=== PATIENT | female | born 1940 | race Caucasian/White ===

== ENCOUNTER 2022-07-30 18:48 | Observation (INO) ==
[2022-07-30] MEDS ORDERED: ONDANSETRON 4 MG OD TAB ONE (20:18)
--- NOTE | 2022-07-30 20:19 | XRay Report ---
XR chest 1V portable CLINICAL HISTORY: stroke alert TECHNIQUE: Single frontal radiograph of the chest was obtained. Comparison: Comparison is made to chest radiograph 03/28/2008 FINDINGS: Dual lead pacemaker is seen. Cardiomegaly is noted. Calcified aortic knob is noted. Linear density is in the left lower lung. No evidence of pleural effusion or pneumothorax. IMPRESSION: Focal atelectasis in the left lung base. No acute abnormalities. ACT 112: Negative or not required by law. Electronically signed by: David Muñoz M.D. 07/30/2022 8:18 PM
--- NOTE | 2022-07-30 20:34 | CT Scan Report ---
CT head/brain wo con CLINICAL HISTORY: Stroke Alert Technique: Contiguous axial CT images of the head were acquired from the base of the skull to the tristen joshua without intravenous contrast administration. Images were viewed in brain, subdural and bone [facility]. Automated dose lowering techniques and/or adjustment according to patient size were utilized for this exam. Comparison: None available at the time of this dictation. Findings: There are postsurgical changes in the left frontal lobe with associated encephalomalacia. Pneumocepha savanna is seen. Hyperdense material in the right frontal subdural region measures 27 mm. There is promi nence of the left subarachnoid space and an approximate 5 mm dural density about the incision site. T here is trace subarachnoid hemorrhage in the right frontal lobe. No intraventricular hemorrhage is se en. Imaged portions of the paranasal sinuses and mastoid air cells are clear. The orbits appear normal. There are no acute fractures of the calvaria or scalp swelling. Impression: 1. Postsurgical changes of left frontal resection. There is pneumocephalus, 5 mm dural density about the incision site is noted, and there is trace subarachnoid hemorrhage. This may represent expected postoperative findings, however this may also be concerning for a small hemorrhage and/or infectious process. Correlation with recent postprocedural imaging is recommended. 2. 6 mm right subdural density may represent a subacute subdural hematoma, possibly postprocedural. ACT 112: Negative or not required by law. Electronically signed by: David Muñoz M.D. 07/30/2022 8:32 PM
[2022-07-30 20:42] LABS: Hematocrit (blood only) 35.7 % (34.1-44.9); Mean Corpuscular Hemoglobin 30.4 pg (25.0-34.0); Mean Corpuscular Hgb Conc 33.6 g/dL (32.0-36.0); Mean Corpuscular Volume 90.4 fL (80.0-100.0); Mean Platelet Volume 11.6 fL (9.4-12.3); Platelet Count 303 K/uL (130-400); RDW Coefficient of Variation 13.7 % (11.5-14.5); RDW Standard Deviation 44.6 fL (36.4-46.3); Red Blood Count 3.95 M/uL (3.93-5.22); White Blood Count 10.22 K/ul (4.8-10.8)
[2022-07-30 20:48] LABS: Appearance Urine Cloudy (Clear); Bacteria Urine Automated 4+ (Negative); Bilirubin Urine Negative (Negative); Blood Urine Negative (Negative); Color Urine Yellow; Epithelial Cell Urine Auto >30 /lpf (0-5); Glucose Urine UA Negative (Negative); Ketones Urine Negative (Negative); Leukocyte Esterase Urine 3+ (Negative); Nitrite Urine Negative (Negative); RBC Urine Automated 0-4 /hpf (0-4); Specific Gravity Urine 1.012 (1.000-1.030); Urobilinogen Urine Negative (Negative); WBC Urine Automated >30 /hpf (0-5)
[2022-07-30 20:53] LABS: Protein Urine 1+ (Negative)
[2022-07-30 20:55] LABS: Base Excess VBG -3.8 mEq/L; HCO3 VBG 22 mmol/L; Oxygen Saturation VBG < 60.0 %; PCO2 VBG 39 mmHg (38-50); PO2 VBG 29 mmHg; pH VBG 7.35 (7.36-7.41)
[2022-07-30 21:05] LABS: Partial Thromboplastin Time 27.3 Seconds (21.0-31.0); Prothrombin Time 10.3 Seconds (9.0-12.0)
[2022-07-30 21:14] LABS: Troponin I High Sensitivity 22.7 pg/ml (0-14)
[2022-07-30 21:17] LABS: Albumin Globulin Ratio 1.2 (0.9-2); BUN Creatinine Ratio 32.8 (10-20); Bilirubin,Total 0.5 mg/dl (0.2-1.0); Calcium 9.6 mg/dl (8.5-10.1); Creatinine Clr Calc Pharmacy 37.7 ml/min; Est GFR (African American) 48.8 ml/min; Est GFR (Non-African American) 42.1 ml/min; Globulin 3.4 gm/dl (2.5-4.0); Magnesium 1.5 mg/dl (1.7-2.4); Potassium 5.5 mmol/L (3.5-5.1); Total Protein 7.4 gm/dl (6.0-8.3)
[2022-07-30] MEDS ORDERED: CIPROFLOXACIN / D5W 400 MG/200 ML BAG IV STA (21:47)
[2022-07-30] MEDS ORDERED: MAGNESIUM SULFATE / D5W 1 GM/100 ML BAG IV STA (21:47)
[2022-07-30] MEDS ORDERED: MAGNESIUM SULFATE / D5W 1 GM/100 ML BAG IV ONE (21:58)
[2022-07-30] MEDS ORDERED: SODIUM CHLORIDE 0.9% 1000ML 1,000 ML IV ONE (21:59)
[2022-07-30] MEDS ORDERED: INSULIN HUMAN REGULAR PER UNIT 5 UNITS in SYRINGE 4.95 ML IV STA (22:26)
[2022-07-30] MEDS ORDERED: DEXTROSE 50% 50 ML SYRINGE IV STA (22:27)
--- NOTE | 2022-07-30 23:41 | History & Physical Report ---
Date of Service July 30, 2022 Assessment & Plan (1) Encephalopathy: Plan: Secondary to complicated UTI No sepsis for now Postop ICH Recent craniotomy/meningioma resection at [facility] (07/16/2022) Unchanged from postop scans as per discussion between ER provider and [facility] neurosurgeon, Dr. Santoyo. No intervention recommended. hx CVA AF status post PPM, paced rhythm, Eliquis on hold until follow-up with [facility] neurosurgeon 08/01 Recurrent hyperkalemia secondary to ARF Home lisinopril contributory hypertension, slightly elevated hyperlipidemia on statin Rx DM2 on oral medications, well-controlled as of recent hemoglobin A1c of 6.9 last July 2022 NISHANT on CPAP chronic anemia, hemoglobin at baseline past tobacco abuse Medical telemetry Urine CS, Cefepime Monitor creatinine response to IVF, hold lisinopril for now IV insulin for hyperkalemia Contact patient's [facility] neurosurgeon (Dr. Sorenson) on 08/01/22 if patient still admitted to discuss resumption of home Eliquis and cessation of Keppra Rx. Basal bolus insulin, ISS BG goal 1 10-1 40, carb count coverage DVT prophylaxis. SCDs for now Re: Postop ICH Full code Text document was generated using [employer] voice recognition software. It may contain grammatical or spelling errors. Kindly contact undersigned for clarification of any documentation item in question. History of Present Illness Chief Complaint: Weakness, strokelike symptoms as per records Primary Care Provider: Keira Ardon MD History obtained from patient and records. 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 fib status post PPM on Eliquis prior to recent craniotomy, meningioma status post recent craniotomy/resection (07/[address] [facility]), hypertension, hyperlipidemia, DM2 on oral medications, NISHANT on CPAP, asbestosis as per records, chronic anemia (baseline hemoglobin 10-11), recurrent hyperkalemia, past tobacco abuse. Last [facility] May 2018 confinement under Orthopedics service for elective left total knee arthroplasty. Patient confined at [facility] from July 16 to 2021 for left parafalcine mass (probable meningioma) causing mass-effect and vasogenic edema. Patient underwent left frontal craniotomy for meningioma resection. Postop CT (07/16) 1. Postoperative changes from a left frontal craniotomy for resection of the left anterior falx meningioma. 2. Small amount of subdural hemorrhage and subarachnoid hemorrhage. No hydrocephalus. 3. Pneumocephalus with maximum thickness of 1.4 cm, localized mass effect on the frontal lobes. Postop Brain MRI (07/17) Early postoperative appearance following left frontal craniotomy and resection of left falcine extra-axial mass. No evidence of residual tumor. New bilateral FLAIR hyperintense subdural collections. No significant mass effect. Patient discharged to [facility] rehab facility on oral Decadron taper with H2 suze prescription (last dose 07/30/2022) and Keppra for seizure prophylaxis. Patient instructed to resume Eliquis potentially on August 02, 2022 (after 08/01/[address] [facility] Neurosurgery follow-up appointment) as per discharge note. Keppra to be continued until upcoming Neurosurgery follow-up visit. Patient noted to be lethargic and weak at the rehab facility today. Staff worried about strokelike symptoms. Patient denies headache, chest pain, SOB, abdominal pain, dysuria symptoms. Patient brought to the ER for evaluation. Ciprofloxacin administered at the ER for possible UTI. Patient currently feels much better. Medical History as above Surgical History : Knee surgeries, carpal tunnel surgery, PPM, appendectomy, craniotomy with meningioma resection, KATERYNA/BSO Family History : Colon cancer, heart disease, stroke Personal/Social history : Past tobacco abuse, occasional EtOH intake, retired nurse aide Allergies Allergy/AdvReac Type Severity Reaction Status Date / Time Penicillins Allergy Intermediate ANAPHYLAXIS Verified 07/30/22 23:04 tetanus toxoid, adsorbed Allergy Unknown PT REPORTS Verified 07/30/22 23:04 SOB - see note below cortisone Allergy Unknown Verified 07/30/22 23:04 erythromycin base Allergy Unknown Verified 07/30/22 23:04 ibandronate sodium Allergy Unknown Verified 07/30/22 23:05 [From [facility]] acetaminophen AdvReac Unknown GI UPSET Verified 07/30/22 23:04 propoxyphene AdvReac Unknown N/V Verified 07/30/22 23:04 Sulfa (Sulfonamide AdvReac Unknown HIVES Verified 07/30/22 23:04 Antibiotics) lactose AdvReac intolerance Verified 07/30/22 23:05 Flu Virus Vaccine Allergy Unknown GETS SICK Uncoded 07/30/22 23:04 WITH IT Home Medications Medication Instructions Recorded Confirmed Type acetaminophen 325 mg tablet 650 mg PO Q4 PRN .PAIN 1-3 SCALE 07/30/22 07/30/22 History (Tylenol) amlodipine 10 mg tablet 10 mg PO DAILY 07/30/22 07/30/22 History ascorbic acid (vitamin C) 500 mg 500 mg PO DAILY 07/30/22 07/30/22 History tablet (Vitamin C) atorvastatin 40 mg tablet 40 mg PO DAILY 07/30/22 07/30/22 History bisacodyl 10 mg rectal suppository 10 mg ID DAILY PRN Constipation 07/30/22 07/30/22 History cyanocobalamin (vitamin B-12) 2,000 mcg PO DAILY 07/30/22 07/30/22 History 1,000 mcg tablet docusate sodium 100 mg capsule 100 mg PO BID 07/30/22 07/30/22 History ferrous sulfate 325 mg (65 mg 325 mg PO BID 07/30/22 07/30/22 History iron) tablet glipizide 2.5 mg tablet, extended 5 mg PO QAM 07/30/22 07/30/22 History release 24 hr heparin (porcine) 5,000 unit/mL 5,000 unit subcut Q8H .Prophylaxis 07/30/22 07/30/22 History injection solution hydralazine 25 mg tablet 75 mg PO TID 07/30/22 07/30/22 History insulin regular human 100 unit/mL 1 sliding scale dose subcut ACHS 07/30/22 07/30/22 History injection solution (Humulin R Regular U-100 Insulin) levetiracetam 500 mg tablet 500 mg PO Q12H 07/30/22 07/30/22 History lisinopril 20 mg tablet 20 mg PO Q12 07/30/22 07/30/22 History magnesium hydroxide 400 mg/5 mL 30 ml PO DAILY PRN Constipation 07/30/22 07/30/22 History oral suspension (Milk of Magnesia) metformin 1,000 mg tablet 1,000 mg PO BIDWMEAL 07/30/22 07/30/22 History metoprolol tartrate 25 mg tablet 25 mg PO Q12 07/30/22 07/30/22 History ondansetron HCl 4 mg tablet 4 mg PO Q4 PRN Nausea 07/30/22 07/30/22 History polyethylene glycol 3350 17 17 g PO .QLUNCH PRN Constipation 07/30/22 07/30/22 History gram/dose oral powder (Miralax) sennosides 8.6 mg-docusate sodium 1 tab-cap PO .QLUNCH PRN 07/30/22 07/30/22 History 50 mg tablet (Senokot-S) Constipation tramadol 50 mg tablet 50 mg PO DAILY PRN Pain 07/30/22 07/30/22 History Past Med/Surg History Medical History (Updated 07/31/22 @ 07:47 by Regis Cornelius MD) Atrial fibrillation CKD (chronic kidney disease), stage III CVA (cerebral vascular accident) Diabetes Heart failure HLD (hyperlipidemia) HTN (hypertension) Meningioma No pertinent family history NISHANT (obstructive sleep apnea) Surgical History (Updated 07/31/22 @ 00:06 by Isaak Adams) H/O craniotomy Social History Smoking Status: Unknown if ever smoked Hx Alcohol Use: No Hx Substance Use: No Preferred Language: Telugu Communication Ability: Effective 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 Beliefs That Will Affect Care: None Current Living Situation: Alone Current Living Situation Comment: Lives on 1rst floor of 3 story house Feels Safe at Home: Yes Safety Concerns: Feels Safe At This Time Assistive Devices: Wheelchair Review of Systems Review of Systems: As per HPI, all other systems reviewed and negative Physical Exam Physical Exam: GENERAL: Comfortable, pleasant, dysphonic (chronic as per patient ), mild dysarthria (chronic as per patient), no respiratory distress SKIN: Pallor, warm HEENT: Pale palpebral conjunctivae, no ptosis, chronic facial asymmetry as per patient, dry buccal mucosa NECK : Supple, no tenderness CHEST : CTA, no tenderness HEART : RRR, no obvious murmurs ABDOMEN: Some distention, nontender EXTREMITIES : No LE swelling/tenderness, no other conspicuous deformities noted NEUROLOGIC : Coherent, chronic facial asymmetry, chronic right hemiparesis, chronic dysarthria, gait and stance not assessed Results & Data Results & Data ([facility]) Vital Signs (Past 12 Hours) Vital Signs Temp Pulse Pulse Resp BP BP Pulse Ox 07/30/22 22:00 77 16 131/59 L 97 07/30/22 20:38 64 16 138/64 97 07/30/22 19:52 64 16 97 07/30/22 19:52 07/30/22 18:38 36.5 C 73 16 140/67 98 07/30/22 18:38 07/30/22 18:38 36.5 C 73 16 140/67 98 O2 Del Method 07/30/22 22:00 Room Air 07/30/22 20:38 07/30/22 19:52 Room Air 07/30/22 19:52 Room Air 07/30/22 18:38 Room Air 07/30/22 18:38 Room Air, Nasal Cannula, Oxymask, Aerosol Mask, Ambu-Bag, BiPAP, CPAP, Free Flow/Blow-by, High Flow Nasal Cannula, Oxyhood, Mechanical Vent, Nasal CPAP, Nebulizer, Non-rebreather, T-Piece, Trach Collar, Face Tent, Other 07/30/22 18:38 Room Air Laboratory Results Laboratory Results WBC 10.22 K/ul (4.8-10.8) 07/30/22 20:20 RBC 3.95 M/uL (3.93-5.22) 07/30/22 20:20 Hgb 12.0 g/dl (12.0-16.0) 07/30/22 20:20 Hct 35.7 % (34.1-44.9) 07/30/22 20:20 MCV 90.4 fL (80.0-100.0) 07/30/22 20:20 MCH 30.4 pg (25.0-34.0) 07/30/22 20:20 MCHC 33.6 g/dL (32.0-36.0) 07/30/22 20:20 RDW Std Deviation 44.6 fL (36.4-46.3) 07/30/22 20:20 RDW Coeff of Cesia 13.7 % (11.5-14.5) 07/30/22 20:20 Plt Count 303 K/uL (130-400) 07/30/22 20:20 MPV 11.6 fL (9.4-12.3) 07/30/22 20:20 PT 10.3 Seconds (9.0-12.0) 07/30/22 20:20 INR 1.0 (0.9-1.1) 07/30/22 20:20 APTT 27.3 Seconds (21.0-31.0) 07/30/22 20:20 PTT Ratio 1.0 07/30/22 20:20 VBG pH 7.35 (7.36-7.41) L 07/30/22 20:42 VBG pCO2 39 mmHg (38-50) 07/30/22 20:42 VBG pO2 29 mmHg 07/30/22 20:42 VBG HCO3 22 mmol/L 07/30/22 20:42 VBG O2 Saturation < 60.0 % 07/30/22 20:42 VBG Base Excess -3.8 mEq/L 07/30/22 20:42 Sodium 132 mmol/L (136-145) L 07/30/22 20:20 Potassium 5.5 mmol/L (3.5-5.1) H 07/30/22 20:20 Chloride 100 mmol/L (98-107) 07/30/22 20:20 Carbon Dioxide 22 mmol/L (21-32) 07/30/22 20:20 Anion Gap 10 (3-11) 07/30/22 20:20 BUN 40 mg/dl (6-23) H 07/30/22 20:20 Creatinine 1.22 mg/dl (0.6-1.2) H 07/30/22 20:20 Est Cr Clr Drug Dosing 37.7 ml/min 07/30/22 20:20 Est GFR ( Amer) 48.8 ml/min 07/30/22 20:20 Est GFR (Non-Af Amer) 42.1 ml/min 07/30/22 20:20 BUN/Creatinine Ratio 32.8 (10-20) H 07/30/22 20:20 Glucose 118 mg/dl (70-99(Fasting)) H 07/30/22 20:20 POC Glucose 121 mg/dl (70-99) H 07/30/22 20:21 Calcium 9.6 mg/dl (8.5-10.1) 07/30/22 20:20 Magnesium 1.5 mg/dl (1.7-2.4) L 07/30/22 20:20 Total Bilirubin 0.5 mg/dl (0.2-1.0) 07/30/22 20:20 AST 13 U/L (13-39) 07/30/22 20:20 ALT 17 U/L (7-52) 07/30/22 20:20 Alkaline Phosphatase 86 U/L (34-104) 07/30/22 20:20 Troponin I High Sens 22.7 pg/ml (0-14) H 07/30/22 20:20 Total Protein 7.4 gm/dl (6.0-8.3) 07/30/22 20:20 Albumin 4.0 gm/dl (3.4-5.0) 07/30/22 20:20 Globulin 3.4 gm/dl (2.5-4.0) 07/30/22 20:20 Albumin/Globulin Ratio 1.2 (0.9-2) 07/30/22 20:20 Urine Color Yellow 07/30/22 20:33 Urine Appearance Cloudy (Clear) A 07/30/22 20:33 Urine pH 8.0 (4.5-7.5) H 07/30/22 20:33 Ur Specific [place] 1.012 (1.000-1.030) 07/30/22 20:33 Urine Protein 1+ (Negative) H 07/30/22 20:33 Urine Glucose (UA) Negative (Negative) 07/30/22 20:33 Urine Ketones Negative (Negative) 07/30/22 20:33 Urine Blood Negative (Negative) 07/30/22 20:33 Urine Nitrite Negative (Negative) 07/30/22 20:33 Urine Bilirubin Negative (Negative) 07/30/22 20:33 Urine Urobilinogen Negative (Negative) 07/30/22 20:33 Ur Leukocyte Esterase 3+ (Negative) H 07/30/22 20:33 Urine WBC (Auto) >30 /hpf (0-5) H 07/30/22 20:33 Urine RBC (Auto) 0-4 /hpf (0-4) 07/30/22 20:33 U Hyaline Cast (Auto) 1-5 /lpf (0-5) 07/30/22 20:33 U Epithel Cells (Auto) >30 /lpf (0-5) H 07/30/22 20:33 Urine Bacteria (Auto) 4+ (Negative) H 07/30/22 20:33 Digoxin < 0.3 ng/ml (0.8-2.0) L 07/30/22 20:42 SARS-CoV-2, RNA, NAAT NEGATIVE (NEGATIVE) 07/30/22 22:02 Impressions Chest X-Ray 07/30/22 19:52 XR chest 1V portable CLINICAL HISTORY: stroke alert TECHNIQUE: Single frontal radiograph of the chest was obtained. Comparison: Comparison is made to chest radiograph 03/28/2008 FINDINGS: Dual lead pacemaker is seen. Cardiomegaly is noted. Calcified aortic knob is noted. Linear density is in the left lower lung. No evidence of pleural effusion or pneumothorax. IMPRESSION: Focal atelectasis in the left lung base. No acute abnormalities. ACT 112: Negative or not required by law. Electronically signed by: David Muñoz M.D. 07/30/2022 8:[address] 07/30/22 19:52 CT head/brain wo con CLINICAL HISTORY: Stroke Alert Technique: Contiguous axial CT images of the head were acquired from the base of the skull to the vertex without intravenous contrast administration. Images were viewed in brain, subdural and bone windows. Automated dose lowering techniques and/or adjustment according to patient size were utilized for this exam. Comparison: None available at the time of this dictation. Findings: There are postsurgical changes in the left frontal lobe with associated encephalomalacia. Pneumocephalus is seen. Hyperdense material in the right frontal subdural region measures 27 mm. There is prominence of the left subarachnoid space and an approximate 5 mm dural density about the incision site. There is trace subarachnoid hemorrhage in the right frontal lobe. No intraventricular hemorrhage is seen. Imaged portions of the paranasal sinuses and mastoid air cells are clear. The orbits appear normal. There are no acute fractures of the calvaria or scalp swelling. Impression: 1. Postsurgical changes of left frontal resection. There is pneumocephalus, 5 mm dural density about the incision site is noted, and there is trace subarachnoid hemorrhage. This may represent expected postoperative findings, however this may also be concerning for a small hemorrhage and/or infectious process. Correlation with recent postprocedural imaging is recommended. 2. 6 mm right subdural density may represent a subacute subdural hematoma, possibly postprocedural. ACT 112: Negative or not required by law. Electronically signed by: David Muñoz M.D. 07/30/2022 8:32 PM Diagnostic Findings EKG as per my interpretation : Rate 80, paced rhythm
--- NOTE | 2022-07-31 00:10 | Emergency Department Note ---
History of Present Illness General Chief complaint: Neuro Symptoms/Deficit Time Seen by Provider: 07/30/22 20:14 Source: EMS and RN notes reviewed Mode of arrival: EMS History of Present Illness Provider complaint: Weakness Onset (ago): hour(s) 6 81-year-old female presents emergency department from [facility] for weakness. 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 They stated at 4:30 PM the staff noticed that she was increasingly weak and thought she was having a stroke. No reported falls. Patient was at [facility] after having a brain tumor removed on July 06 at [facility]. Home Medications Medication Instructions Recorded Confirmed Type acetaminophen 325 mg tablet 650 mg PO Q4 PRN .PAIN 1-3 SCALE 07/30/22 07/30/22 History (Tylenol) amlodipine 10 mg tablet 10 mg PO DAILY 07/30/22 07/30/22 History ascorbic acid (vitamin C) 500 mg 500 mg PO DAILY 07/30/22 07/30/22 History tablet (Vitamin C) atorvastatin 40 mg tablet 40 mg PO DAILY 07/30/22 07/30/22 History bisacodyl 10 mg rectal suppository 10 mg [place] DAILY PRN Constipation 07/30/22 07/30/22 History cyanocobalamin (vitamin B-12) 2,000 mcg PO DAILY 07/30/22 07/30/22 History 1,000 mcg tablet dexamethasone 1 mg tablet 2 mg PO DAILY 07/30/22 07/30/22 History docusate sodium 100 mg capsule 100 mg PO BID 07/30/22 07/30/22 History famotidine 20 mg tablet 20 mg PO DAILY 07/30/22 07/30/22 History ferrous sulfate 325 mg (65 mg 325 mg PO BID 07/30/22 07/30/22 History iron) tablet glipizide 2.5 mg tablet, extended 5 mg PO QAM 07/30/22 07/30/22 History release 24 hr heparin (porcine) 5,000 unit/mL 5,000 unit subcut Q8H .Prophylaxis 07/30/22 07/30/22 History injection solution hydralazine 25 mg tablet 75 mg PO TID 07/30/22 07/30/22 History insulin regular human 100 unit/mL 1 sliding scale dose subcut ACHS 07/30/22 07/30/22 History injection solution (Humulin R Regular U-100 Insulin) levetiracetam 500 mg tablet 500 mg PO Q12H 07/30/22 07/30/22 History lisinopril 20 mg tablet 20 mg PO Q12 07/30/22 07/30/22 History magnesium hydroxide 400 mg/5 mL 30 ml PO DAILY PRN Constipation 07/30/22 07/30/22 History oral suspension (Milk of Magnesia) metformin 1,000 mg tablet 1,000 mg PO BIDWMEAL 07/30/22 07/30/22 History metoprolol tartrate 25 mg tablet 25 mg PO Q12 07/30/22 07/30/22 History ondansetron HCl 4 mg tablet 4 mg PO Q4 PRN Nausea 07/30/22 07/30/22 History polyethylene glycol 3350 17 17 g PO .QLUNCH PRN Constipation 07/30/22 07/30/22 History gram/dose oral powder (Miralax) sennosides 8.6 mg-docusate sodium 1 tab-cap PO .QLUNCH PRN 07/30/22 07/30/22 History 50 mg tablet (Senokot-S) Constipation tramadol 50 mg tablet 50 mg PO DAILY PRN Pain 07/30/22 07/30/22 History Allergies Allergy/AdvReac Type Severity Reaction Status Date / Time Penicillins Allergy Intermediate ANAPHYLAXIS Verified 07/30/22 23:04 tetanus toxoid, adsorbed Allergy Unknown PT REPORTS Verified 07/30/22 23:04 SOB - see note below cortisone Allergy Unknown Verified 07/30/22 23:04 erythromycin base Allergy Unknown Verified 07/30/22 23:04 ibandronate sodium Allergy Unknown Verified 07/30/22 23:05 [From [facility]] acetaminophen AdvReac Unknown GI UPSET Verified 07/30/22 23:04 propoxyphene AdvReac Unknown N/V Verified 07/30/22 23:04 Sulfa (Sulfonamide AdvReac Unknown HIVES Verified 07/30/22 23:04 Antibiotics) lactose AdvReac intolerance Verified 07/30/22 23:05 Flu Virus Vaccine Allergy Unknown GETS SICK Uncoded 07/30/22 23:04 WITH IT Past Med/Surg History Medical History (Updated 07/31/22 @ 00:13 by Isaak Adams) Atrial fibrillation CKD (chronic kidney disease), stage III CVA (cerebral vascular accident) Diabetes Heart failure HLD (hyperlipidemia) HTN (hypertension) Meningioma No pertinent family history NISHANT (obstructive sleep apnea) Surgical History (Updated 07/31/22 @ 00:06 by Isaak Adams) H/O craniotomy Social History Smoking Status: Never smoker Feels Safe at Home: Yes Review of Systems A total of 10 systems reviewed and were otherwise negative Physical Exam Vital Signs Vital Signs - 24 hr 07/30/22 18:38 07/30/22 18:38 07/30/22 18:38 Temperature 36.5 C 36.5 C Temperature Source Oral Oral Pulse Rate 73 Pulse Rate [Apical] 73 Pulse Rhythm Regular Pulse Rhythm [Apical] Regular Pulse Strength Normal Pulse Strength [Apical] Normal Respiratory Rate 16 16 Respiratory Effort / Characteristics Non-Labored Non-Labored Respiratory Depth Normal Normal Respiratory Pattern Regular Regular Blood Pressure 140/67 Blood Pressure [Right Arm] 140/67 Blood Pressure Mean 91 Blood Pressure Mean [Right Arm] 91 Blood Pressure Position [Right Arm] Pulse Oximetry 98 98 Oxygen Delivery Method Room Air Room Air Nasal Cannula Oxymask Aerosol Mask Ambu-Bag BiPAP CPAP Free Flow/Blow- by High Flow Nasal Cannula Oxyhood Mechanical Vent Nasal CPAP Nebulizer Non-rebreather T-Piece Trach Collar Face Tent Other Room Air Sepsis Recent Fever Within 48 Hours No Sepsis New/Unexplained Change in Mental Status Yes Sepsis Action Taken by Nursing No Action Required 07/30/22 19:52 07/30/22 19:52 07/30/22 20:38 Temperature Temperature Source Pulse Rate 64 Pulse Rate [Apical] 64 Pulse Rhythm Regular Pulse Rhythm [Apical] Regular Pulse Strength Pulse Strength [Apical] Normal Respiratory Rate 16 16 Respiratory Effort / Characteristics Non-Labored Respiratory Depth Normal Respiratory Pattern Regular Blood Pressure Blood Pressure [Right Arm] 138/64 Blood Pressure Mean Blood Pressure Mean [Right Arm] 88 Blood Pressure Position [Right Arm] Sitting Pulse Oximetry 97 97 Oxygen Delivery Method Room Air Room Air Sepsis Recent Fever Within 48 Hours Sepsis New/Unexplained Change in Mental Status Sepsis Action Taken by Nursing 07/30/22 22:00 Temperature Temperature Source Pulse Rate Pulse Rate [Apical] 77 Pulse Rhythm Pulse Rhythm [Apical] Regular Pulse Strength Pulse Strength [Apical] Normal Respiratory Rate 16 Respiratory Effort / Characteristics Non-Labored Respiratory Depth Normal Respiratory Pattern Regular Blood Pressure Blood Pressure [Right Arm] 131/59 L Blood Pressure Mean Blood Pressure Mean [Right Arm] 83 Blood Pressure Position [Right Arm] Pulse Oximetry 97 Oxygen Delivery Method Room Air Sepsis Recent Fever Within 48 Hours Sepsis New/Unexplained Change in Mental Status Sepsis Action Taken by Nursing Physical Exam HENT: Exam performed. -Head: Normocephalic. Surgical incision is clean and dry no surrounding erythema no discharge or bleeding. -Right Ear: External ear normal. No mastoid tenderness. -Left Ear: External ear normal. No mastoid tenderness. -Mouth/Throat: The oropharynx is clear and moist. No trismus in the jaw. No dental abscesses or uvula swelling. No oropharyngeal exudate or tonsillar abscesses. EYES: Conjunctivae and EOM are normal. Pupils are equal, round, and reactive to light. Right eye exhibits no discharge. Left eye exhibits no discharge. No scleral icterus. NECK: Normal range of motion. Neck supple. No JVD present. No spinous process tenderness present. No carotid bruit present. No rigidity. No tracheal deviation and normal range of motion present. No Brudzinski's sign and no Kernig's sign noted. CV: Normal rate, regular rhythm, normal heart sounds and intact distal pulses. There is no peripheral edema. Palpable radial pulses bue. PULM/CHEST: Effort normal and breath sounds normal. No respiratory distress. No stridor. She has no wheezes. She has no rales. -Chest Wall: She exhibits no tenderness. ABD: The abdomen is soft. Bowel sounds are normal. She has no distension. No mass is present. There is no tenderness. There is no rebound, no guarding, no Molina's sign and no tenderness at McBurney's point. Rovsig negative NEURO: She is alert and oriented to person, place, and time. Right upper extremity weakness. SKIN: Skin is warm and dry. She is not diaphoretic. Course Course 2014: The patient was evaluated in room B7. A complete history and physical exam was performed Cardiac monitoring: An order was placed for continuous cardiac monitoring. The monitor shows a rate of 70 with sinus rhythm 2106: CT shows surgical changes of the left frontal resection with pneumocephalus and trace subarachnoid hemorrhage. Findings may represent postoperative changes however small hemorrhage and infectious process cannot be ruled out. There is also a 6 mm right subdural density that may over present a acute subdural hematoma. I discussed the case with [facility] neurosurgery Dr. Santoyo and had the images sent to their facility for him to review. Dr. Santoyo states that he will call me back after reviewing the images. 2128: Vital signs stable. Labs show potassium of 5.5. Magnesium 1.5. Urinalysis is concerning for infection. Spoke with Dr. Yarelis Villa neurosurgery. After reviewing CT images done today at this facility via [facility] he states that the CT findings appear postsurgical. He states that there is no need for transfer at this time and no neurosurgical intervention needed. He recommends that the patient be admitted to the hospital and managed medically and if the patient needs any further management from a neurological or neurosurgical standpoint he states that the admitting team can contact him. Patient will be treated with Cipro IV for her UTI as she has a anaphylactic reaction to penicillins. Magnesium repletion started in the emergency department. Dr. Coronado [facility] hospitalist team will be made aware. Administered Medications Sodium Chloride (Nss 1000ml) 1,000 mls @ 200 mls/hr IV .Q5H ONE Stop: 07/31/22 02:58 Last Admin: 07/30/22 23:21 Dose: 200 mls/hr Documented By: JUAN J Discontinued Medications Dextrose (Dextrose 50% 50 Ml Syringe) 50 ml IV NOW STA Stop: 07/30/22 22:28 Last Admin: 07/30/22 23:13 Dose: 50 ml Documented By: JUAN J Ciprofloxacin (Cipro / D5w) 400 mg in 200 mls @ 200 mls/hr IV NOW STA Stop: 07/30/22 22:46 Last Admin: 07/30/22 23:13 Dose: 200 mls/hr Documented By: JUAN J Insulin Human Regular 5 units/ (Syringe) 5 mls @ 0 mls/hr IV ONE STA Stop: 07/30/22 22:27 Last Admin: 07/30/22 23:17 Dose: 5 mls/hr Documented By: JUAN J Co-signed By: SARITHA Medical Decision Making Laboratory Data Result diagrams: 07/30/22 20:20 07/30/22 20:20 Lab Results 07/30/22 07/30/22 07/30/22 Range/Units 20:20 20:20 20:20 WBC 10.22 (4.8-10.8) K/ul RBC 3.95 (3.93-5.22) M/uL Hgb 12.0 (12.0-16.0) g/dl Hct 35.7 (34.1-44.9) % MCV 90.4 (80.0-100.0) fL MCH 30.4 (25.0-34.0) pg MCHC 33.6 (32.0-36.0) g/dL RDW Std Deviation 44.6 (36.4-46.3) fL RDW Coeff of Cesia 13.7 (11.5-14.5) % Plt Count 303 (130-400) K/uL MPV 11.6 (9.4-12.3) fL PT 10.3 (9.0-12.0) Seconds INR 1.0 (0.9-1.1) APTT 27.3 (21.0-31.0) Seconds PTT Ratio 1.0 VBG pH (7.36-7.41) VBG pCO2 (38-50) mmHg VBG pO2 mmHg VBG HCO3 mmol/L VBG O2 Saturation % VBG Base Excess mEq/L Sodium 132 L (136-145) mmol/L Potassium 5.5 H (3.5-5.1) mmol/L Chloride 100 (98-107) mmol/L Carbon Dioxide 22 (21-32) mmol/L Anion Gap 10 (3-11) BUN 40 H (6-23) mg/dl Creatinine 1.22 H (0.6-1.2) mg/dl Est Cr Clr Drug Dosing 37.7 ml/min Est GFR ( Amer) 48.8 ml/min Est GFR (Non-Af Amer) 42.1 ml/min BUN/Creatinine Ratio 32.8 H (10-20) Glucose 118 H (70-99(Fasting)) mg/dl POC Glucose (70-99) mg/dl Calcium 9.6 (8.5-10.1) mg/dl Magnesium 1.5 L (1.7-2.4) mg/dl Total Bilirubin 0.5 (0.2-1.0) mg/dl AST 13 (13-39) U/L ALT 17 (7-52) U/L Alkaline Phosphatase 86 (34-104) U/L Troponin I High Sens 22.7 H (0-14) pg/ml Total Protein 7.4 (6.0-8.3) gm/dl Albumin 4.0 (3.4-5.0) gm/dl Globulin 3.4 (2.5-4.0) gm/dl Albumin/Globulin Ratio 1.2 (0.9-2) Urine Color Urine Appearance (Clear) Urine pH (4.5-7.5) Ur Specific [place] (1.000-1.030) Urine Protein (Negative) Urine Glucose (UA) (Negative) Urine Ketones (Negative) Urine Blood (Negative) Urine Nitrite (Negative) Urine Bilirubin (Negative) Urine Urobilinogen (Negative) Ur Leukocyte Esterase (Negative) Urine WBC (Auto) (0-5) /hpf Urine RBC (Auto) (0-4) /hpf U Hyaline Cast (Auto) (0-5) /lpf U Epithel Cells (Auto) (0-5) /lpf Urine Bacteria (Auto) (Negative) Digoxin (0.8-2.0) ng/ml SARS-CoV-2, RNA, NAAT (NEGATIVE) 07/30/22 07/30/22 07/30/22 Range/Units 20:21 20:33 20:42 WBC (4.8-10.8) K/ul RBC (3.93-5.22) M/uL Hgb (12.0-16.0) g/dl Hct (34.1-44.9) % MCV (80.0-100.0) fL MCH (25.0-34.0) pg MCHC (32.0-36.0) g/dL RDW Std Deviation (36.4-46.3) fL RDW Coeff of Cesia (11.5-14.5) % Plt Count (130-400) K/uL MPV (9.4-12.3) fL PT (9.0-12.0) Seconds INR (0.9-1.1) APTT (21.0-31.0) Seconds PTT Ratio VBG pH (7.36-7.41) VBG pCO2 (38-50) mmHg VBG pO2 mmHg VBG HCO3 mmol/L VBG O2 Saturation % VBG Base Excess mEq/L Sodium (136-145) mmol/L Potassium (3.5-5.1) mmol/L Chloride (98-107) mmol/L Carbon Dioxide (21-32) mmol/L Anion Gap (3-11) BUN (6-23) mg/dl Creatinine (0.6-1.2) mg/dl Est Cr Clr Drug Dosing ml/min Est GFR ( Amer) ml/min Est GFR (Non-Af Amer) ml/min BUN/Creatinine Ratio (10-20) Glucose (70-99(Fasting)) mg/dl POC Glucose 121 H (70-99) mg/dl Calcium (8.5-10.1) mg/dl Magnesium (1.7-2.4) mg/dl Total Bilirubin (0.2-1.0) mg/dl AST (13-39) U/L ALT (7-52) U/L Alkaline Phosphatase (34-104) U/L Troponin I High Sens (0-14) pg/ml Total Protein (6.0-8.3) gm/dl Albumin (3.4-5.0) gm/dl Globulin (2.5-4.0) gm/dl Albumin/Globulin Ratio (0.9-2) Urine Color Yellow Urine Appearance Cloudy A (Clear) Urine pH 8.0 H (4.5-7.5) Ur Specific [place] 1.012 (1.000-1.030) Urine Protein 1+ H (Negative) Urine Glucose (UA) Negative (Negative) Urine Ketones Negative (Negative) Urine Blood Negative (Negative) Urine Nitrite Negative (Negative) Urine Bilirubin Negative (Negative) Urine Urobilinogen Negative (Negative) Ur Leukocyte Esterase 3+ H (Negative) Urine WBC (Auto) >30 H (0-5) /hpf Urine RBC (Auto) 0-4 (0-4) /hpf U Hyaline Cast (Auto) 1-5 (0-5) /lpf U Epithel Cells (Auto) >30 H (0-5) /lpf Urine Bacteria (Auto) 4+ H (Negative) Digoxin < 0.3 L (0.8-2.0) ng/ml SARS-CoV-2, RNA, NAAT (NEGATIVE) 07/30/22 07/30/22 Range/Units 20:42 22:02 WBC (4.8-10.8) K/ul RBC (3.93-5.22) M/uL Hgb (12.0-16.0) g/dl Hct (34.1-44.9) % MCV (80.0-100.0) fL MCH (25.0-34.0) pg MCHC (32.0-36.0) g/dL RDW Std Deviation (36.4-46.3) fL RDW Coeff of Cesia (11.5-14.5) % Plt Count (130-400) K/uL MPV (9.4-12.3) fL PT (9.0-12.0) Seconds INR (0.9-1.1) APTT (21.0-31.0) Seconds PTT Ratio VBG pH 7.35 L (7.36-7.41) VBG pCO2 39 (38-50) mmHg VBG pO2 29 mmHg VBG HCO3 22 mmol/L VBG O2 Saturation < 60.0 % VBG Base Excess -3.8 mEq/L Sodium (136-145) mmol/L Potassium (3.5-5.1) mmol/L Chloride (98-107) mmol/L Carbon Dioxide (21-32) mmol/L Anion Gap (3-11) BUN (6-23) mg/dl Creatinine (0.6-1.2) mg/dl Est Cr Clr Drug Dosing ml/min Est GFR ( Amer) ml/min Est GFR (Non-Af Amer) ml/min BUN/Creatinine Ratio (10-20) Glucose (70-99(Fasting)) mg/dl POC Glucose (70-99) mg/dl Calcium (8.5-10.1) mg/dl Magnesium (1.7-2.4) mg/dl Total Bilirubin (0.2-1.0) mg/dl AST (13-39) U/L ALT (7-52) U/L Alkaline Phosphatase (34-104) U/L Troponin I High Sens (0-14) pg/ml Total Protein (6.0-8.3) gm/dl Albumin (3.4-5.0) gm/dl Globulin (2.5-4.0) gm/dl Albumin/Globulin Ratio (0.9-2) Urine Color Urine Appearance (Clear) Urine pH (4.5-7.5) Ur Specific [place] (1.000-1.030) Urine Protein (Negative) Urine Glucose (UA) (Negative) Urine Ketones (Negative) Urine Blood (Negative) Urine Nitrite (Negative) Urine Bilirubin (Negative) Urine Urobilinogen (Negative) Ur Leukocyte Esterase (Negative) Urine WBC (Auto) (0-5) /hpf Urine RBC (Auto) (0-4) /hpf U Hyaline Cast (Auto) (0-5) /lpf U Epithel Cells (Auto) (0-5) /lpf Urine Bacteria (Auto) (Negative) Digoxin (0.8-2.0) ng/ml SARS-CoV-2, RNA, NAAT NEGATIVE (NEGATIVE) Imaging Data Radiologist's Impression: Chest X-Ray 07/30/22 19:52 XR chest 1V portable CLINICAL HISTORY: stroke alert TECHNIQUE: Single frontal radiograph of the chest was obtained. Comparison: Comparison is made to chest radiograph 03/28/2008 FINDINGS: Dual lead pacemaker is seen. Cardiomegaly is noted. Calcified aortic knob is noted. Linear density is in the left lower lung. No evidence of pleural effusion or pneumothorax. IMPRESSION: Focal atelectasis in the left lung base. No acute abnormalities. ACT 112: Negative or not required by law. Electronically signed by: David Muñoz M.D. 07/30/2022 8:[address] 07/30/22 19:52 CT head/brain wo con CLINICAL HISTORY: Stroke Alert Technique: Contiguous axial CT images of the head were acquired from the base of the skull to the vertex without intravenous contrast administration. Images were viewed in brain, subdural and bone windows. Automated dose lowering techniques and/or adjustment according to patient size were utilized for this exam. Comparison: None available at the time of this dictation. Findings: There are postsurgical changes in the left frontal lobe with associated encephalomalacia. Pneumocephalus is seen. Hyperdense material in the right fr ontal subdural region measures 27 mm. There is prominence of the left subarachnoid space and an approximate 5 mm dural density about the incision site. There is trace subarachnoid hemorrhage in the right frontal lobe. No intraventricular hemorrhage is seen. Imaged portions of the paranasal sinuses and mastoid air cells are clear. The orbits appear normal. There are no acute fractures of the calvaria or scalp swelling. Impression: 1. Postsurgical changes of left frontal resection. There is pneumocephalus, 5 mm dural density about the incision site is noted, and there is trace subarachnoid hemorrhage. This may represent expected postoperative findings, however this may also be concerning for a small hemorrhage and/or infectious process. Correlation with recent postprocedural imaging is recommended. 2. 6 mm right subdural density may represent a subacute subdural hematoma, possibly postprocedural. ACT 112: Negative or not required by law. Electronically signed by: David Muñoz M.D. 07/30/2022 8:32 PM ECG Data Additional Comments: Paced rhythm with a rate of 79. [place] 286 QRS 154 QTC 460. No ectopy. [facility] Narrative 2013: The patient was evaluated in room B7. A complete history and physical exam was performed Cardiac monitoring: An order was placed for continuous cardiac monitoring. The monitor shows a rate of 70 with sinus rhythm 2106: CT shows surgical changes of the left frontal resection with pneumocephalus and trace subarachnoid hemorrhage. Findings may represent postoperative changes however small hemorrhage and infectious process cannot be ruled out. There is also a 6 mm right subdural density that may over present a acute subdural hematoma. I discussed the case with [facility] neuro[facility] Dr. Santoyo and had the images sent to their facility for him to review. Dr. Santoyo states that he will call me back after reviewing the images. 2128: Vital signs stable. Labs show potassium of 5.5. Magnesium 1.5. Urinalysis is concerning for infection. Spoke with Dr. Yarelis Villa neurosurgery. After reviewing CT images done today at this facility via [facility] he states that the CT findings appear postsurgical. He states that there is no need for transfer at this time and no neurosurgical intervention needed. He recommends that the patient be admitted to the hospital and managed medically and if the patient needs any further management from a neurological or neurosurgical standpoint he states that the admitting team can contact him. Patient will be treated with Cipro IV for her UTI as she has a anaphylactic reaction to penicillins. Magnesium repletion started in the emergency department. Dr. Ivonne Villa hospitalist team will be made aware. Impression & Plan Acute UTI, Hypomagnesemia, Hyperkalemia Discharge Plan Visit Data Chief Complaint: Neuro Symptoms/Deficit ED Provider: Isaak Adams Discharge Problem: Acute UTI, Hypomagnesemia, Hyperkalemia Patient Disposition: Admitted As Inpatient Forms Stand Alone Forms: My [facility] [employer] Prescriptions Prescriptions: No Action atorvastatin 40 mg tablet 40 mg PO DAILY acetaminophen [Tylenol] 325 mg Tablet 650 mg PO Q4 PRN (Reason: .PAIN 1-3 SCALE) levetiracetam 500 mg Tablet 500 mg PO Q12H lisinopril 20 mg tablet 20 mg PO Q12 ondansetron HCl 4 mg Tablet 4 mg PO Q4 PRN (Reason: Nausea) sennosides-docusate sodium [Senokot-S] 8.6-50 mg Tablet 1 tab-cap PO .QLUNCH PRN (Reason: Constipation) cyanocobalamin (vitamin B-12) 1,000 mcg Tablet 2,000 mcg PO DAILY hydralazine 25 mg tablet 75 mg PO TID tramadol 50 mg tablet 50 mg PO DAILY PRN (Reason: Pain) famotidine 20 mg Tablet 20 mg PO DAILY magnesium hydroxide [Milk of Magnesia] 400 mg/5 mL Suspension 30 ml PO DAILY PRN (Reason: Constipation) ascorbic acid (vitamin C) [Vitamin C] 500 mg Tablet 500 mg PO DAILY dexamethasone 1 mg Tablet 2 mg PO DAILY amlodipine 10 mg Tablet 10 mg PO DAILY glipizide 2.5 mg Tablet Extended Release 24hr 5 mg PO QAM bisacodyl [Bisac-Evac] 10 mg Suppository 10 mg [place] DAILY PRN (Reason: Constipation) ferrous sulfate 325 mg (65 mg iron) Tablet 325 mg PO BID metformin 1,000 mg Tablet 1,000 mg PO BIDWMEAL Humulin R Regular U-100 Insuln 100 unit/mL Solution 1 sliding scale dose SUBCUT ACHS Rx Instructions: 70-130=0UNITS, 131-180=2UNITS, 181-240= 4 UNITS, 241-300=6UNITS, 301- 350=8UNITS, 351-400=10UNITS, >400=12UNITS. docusate sodium 100 mg Capsule 100 mg PO BID polyethylene glycol 3350 [Miralax] 17 gram/dose Powder 17 g PO .QLUNCH PRN (Reason: Constipation) heparin (porcine) 5,000 unit/mL Solution 5,000 unit SUBCUT Q8H metoprolol tartrate 25 mg tablet 25 mg PO Q12 Referrals Referrals: Keira Ardon MD [Primary Care Provider] -
[2022-07-31] MEDS ORDERED: GLUCOSE 40% GEL 15 GM TUBE PO PRN (01:46)
[2022-07-31] MEDS ORDERED: GLUCAGON FOR INJ 1 MG VIAL SQ PRN (01:46)
[2022-07-31] MEDS ORDERED: bisacodyL 10 MG SUPP PR PRN (01:46)
[2022-07-31] MEDS ORDERED: POLYETHYLENE (MIRALAX) 17 GM PACK PO PRN (01:46)
[2022-07-31] MEDS ORDERED: DOCUSATE SODIUM/SENNA 50/8.6MG TAB PO PRN (01:46)
[2022-07-31] MEDS ORDERED: CARBOHYDRATES FOR HYPOGLYCEMIA PO PRN (01:46)
[2022-07-31] MEDS ORDERED: PROMETHAZINE HCL 12.5 MG in SODIUM CHLORIDE 0.9% 50 ML IV PRN (01:46)
[2022-07-31] MEDS ORDERED: GLUCOSE 10 TAB/TUBE PO PRN (01:46)
[2022-07-31] MEDS ORDERED: DEXTROSE 50% 50 ML SYRINGE IV PRN (01:46)
[2022-07-31 01:55] LABS: Calcium 8.7 mg/dl (8.5-10.1); Est GFR (African American) 54.1 ml/min; Est GFR (Non-African American) 46.7 ml/min; Potassium 4.7 mmol/L (3.5-5.1)
[2022-07-31] MEDS: INSULIN ASPART PER UNIT SC SCH ×5 (02:05→21:11)
[2022-07-31] MEDS: CEFEPIME 2,000 MG in SYRINGE 0 ML IV SCH (02:12)
[2022-07-31] MEDS: LANTUS PER UNIT CHARGE SQ SCH (02:58)
[2022-07-31] MEDS ORDERED: SODIUM CHLORIDE 0.9% 1000ML 1,000 ML IV ONE (04:00)
[2022-07-31 06:49] LABS: Basophils # (auto) 0.02 K/uL (0-0.2); Basophils % (auto) 0.3 %; Eosinophils # (auto) 0.14 K/uL (0-0.50); Eosinophils % (auto) 1.8 %; Hematocrit (blood only) 28.9 % (34.1-44.9); Hemoglobin 9.6 g/dl (12.0-16.0); Immature Granulocytes # (auto) 0.12 K/uL (0.00-0.02); Immature Granulocytes % (auto) 1.6 %; Lymphocytes # (auto) 2.04 K/uL (1.2-3.4); Lymphocytes % (auto) 26.9 %; Mean Corpuscular Hemoglobin 30.5 pg (25.0-34.0); Mean Corpuscular Hgb Conc 33.2 g/dL (32.0-36.0); Mean Corpuscular Volume 91.7 fL (80.0-100.0); Mean Platelet Volume 11.6 fL (9.4-12.3); Monocytes # (auto) 0.99 K/uL (0.24-0.82); Monocytes % (auto) 13.1 %; Neutrophils # (auto) 4.26 K/uL (1.4-6.5); Neutrophils % (auto) 56.3 %; Platelet Count 242 K/uL (130-400); RDW Coefficient of Variation 13.6 % (11.5-14.5); RDW Standard Deviation 44.7 fL (36.4-46.3); Red Blood Count 3.15 M/uL (3.93-5.22); White Blood Count 7.57 K/ul (4.8-10.8)
[2022-07-31 07:16] LABS: BUN Creatinine Ratio 35.5 (10-20); Calcium 8.7 mg/dl (8.5-10.1); Creatinine Clr Calc Pharmacy 46.7 ml/min; Est GFR (African American) 57.2 ml/min; Est GFR (Non-African American) 49.3 ml/min; Potassium 4.7 mmol/L (3.5-5.1)
[2022-07-31] MEDS: ATORVASTATIN 40 MG TAB PO SCH (08:54)
[2022-07-31] MEDS: amLODIPine BESYLATE 5 MG TAB PO SCH (08:55)
[2022-07-31] MEDS: CYANOCOBALAMIN (B-12) 500 MCG TABLET PO SCH (08:55)
[2022-07-31] MEDS: FERROUS SULFATE 325 MG TAB PO SCH ×2 (08:55→21:09)
[2022-07-31] MEDS: DOCUSATE SODIUM 100 MG CAP PO SCH ×2 (08:55→21:09)
[2022-07-31] MEDS: levETIRAcetam 500 MG TAB PO SCH ×2 (08:56→21:09)
[2022-07-31] MEDS: METOPROLOL TARTRATE 25 MG TAB PO SCH ×2 (08:56→20:09)
[2022-07-31] MEDS: hydrALAZINE HCL 25 MG TAB PO SCH ×3 (08:56→21:10)
[2022-07-31] MEDS ORDERED: FAMOTIDINE 20 MG TAB PO SCH (09:00)
[2022-07-31] MEDS ORDERED: dexAMETHasone 1 MG TAB PO SCH (09:00)
--- NOTE | 2022-07-31 14:48 | Hospitalist Progress Note ---
Date of Service July 31, 2022 Assessment & Plan (1) Acute metabolic encephalopathy: Plan: Improved mental status today and is alert and oriented. Likely related to underlying urine infection. Improved with antibiotics which will continue pending culture results and clinical improvement. (2) Hypomagnesemia: Plan: Repleted. Tolerating PO (3) Hyperkalemia: Plan: K is 5.5 yesterday, today is 4.7. Hold lisinopril until reliably down. If hypertensive, will need to control wtih hydralazine and alternative agent in post op state. (4) Acute UTI: Plan: Cefepime pending urine culture results and continued clinical improvement. (5) Post-operative state: Plan: s/p meningioma removal on 07/16. Cont keppra for seizure prophylaxis in post-op state. Watch for side effects of this including drowsiness/agitation. Also is post PM placement last week. (6) Subdural hematoma: Plan: per notes, imaging was reviewed with neurosugery and there has been no worsening of already known post-operative subdural hematoma and SAH seen on current imaging. Patient is generally weak but is mentating clearly and doesn't have any clear focal neurologic deficits. (7) Subarachnoid hemorrhage: Plan: Plan as above. (8) Anemia: Plan: New worsening anemia today 12/35.7 to 9.6/29 this am. Continues on oral iron per home regimen. Will order anemia studies for next blood drawn and trend CBC. No evidence of acute bleeding. (9) DMII (diabetes mellitus, type 2): Plan: Repeat A1C and cont insulin per basal bolus while inpatient. Hold glipizide (10) CKD (chronic kidney disease), stage III: Plan: chronic, at baseline. Renally dose meds as needed. (11) Atrial fibrillation: Plan: hx CVA AF status post PPM, paced rhythm, Eliquis on hold until follow-up with [facility] [place] neuro[place] 08/01 (12) DVT prophylaxis: Plan: SCD/ambulation Full code Dispo-pending PT/OT evaluations. Donna Horowitz DO [facility] Hospitalist Admission and Anticipated Discharge Date Admission Date: July 30, 2022 Subjective 81 yo F who is recently s/p meningioma removal on 07/16 and s/p pacemaker placement last week presents with nausea and weakness with inability to eat or walk. She is a difficult historian because of lethargy but reports that nausea is better today and she was finally able to eat. She reports that she walks with a walker typically and was walking when she left the hospital. Denies dysuria but ?"possibly" increased urinary urgency for a few days. She isn't sure. Overall feels improved today. Denies headache. Review of Systems Review of Systems: All systems were reviewed and negative except as indicated on subjective above. Physical Exam Physical Exam: CONSTITUTIONAL: WNWD, vitals as above, generally well- appearing, NAD EYES: EOMI bilaterally, PERRL, normal conjunctivae, no scleral icterus ENT: external ear and nose normal, MMM NECK: trachea midline RESPIRATORY: clear to auscultation bilaterally, no crackles, rales or wheezes, normal respiratory effort CARDIOVASCULAR: regular rate and rhythm, S1 and 2 heard without murmurs, gallops or rubs, no JVD, no peripheral edema, CHEST: +pacemaker with fresh, well-healing incision site on left anterior chest and steri-strips in place. GASTROINTESTINAL: soft, nontender, ND, no guarding MUSCULOSKELETAL: generalized weakness with alot of difficulty with active motion of the legs. Head in NCAT SKIN: warm and dry NEUROLOGIC: patellar DTRs could not assess 2/2 patient tensing and in poor position. No facial palsy, no dysarthria. CN 2-12 grossly intact, no sensory deficit, normal cognition, normal speech, no tremor PSYCHIATRIC: alert cooperative and oriented to person, place and time. Euthymic mood, makes good eye contact, language grossly intact, recent and remote memory grossly intact. Results & Data Results & Data ([facility] [place]) Vital Signs (Past 12 Hours) Vital Signs Temp Pulse Pulse Resp BP BP Pulse Ox 07/31/22 11:33 36.2 C L 65 14 138/73 96 07/31/22 10:43 07/31/22 07:18 67 07/31/22 07:10 36.1 C L 61 14 167/83 H 98 07/31/22 05:34 36.3 C L 61 16 116/57 L 96 O2 Del Method 07/31/22 11:33 Room Air 07/31/22 10:43 Room Air 07/31/22 07:18 07/31/22 07:10 Room Air 07/31/22 05:34 Room Air Laboratory Results Short CBC 07/30/22 07/31/22 Range/Units 20:20 05:55 WBC 10.22 7.57 (4.8-10.8) K/ul Hgb 12.0 9.6 L (12.0-16.0) g/dl Hct 35.7 28.9 L (34.1-44.9) % Plt Count 303 242 (130-400) K/uL BMP 07/30/22 07/31/22 07/31/22 20:20 01:15 05:55 Sodium 132 L 131 L 132 L Potassium 5.5 H 4.7 4.7 Chloride 100 102 104 Carbon Dioxide 22 22 23 BUN 40 H 37 H 38 H Creatinine 1.22 H 1.12 1.07 Glucose 118 H 171 H 108 H Calcium 9.6 8.7 8.7 Liver Function 07/30/22 Range/Units 20:20 Total Bilirubin 0.5 (0.2-1.0) mg/dl AST 13 (13-39) U/L ALT 17 (7-52) U/L Alkaline Phosphatase 86 (34-104) U/L Albumin 4.0 (3.4-5.0) gm/dl Urine 07/30/22 Range/Units 20:33 Urine Color Yellow Urine Appearance Cloudy A (Clear) Urine pH 8.0 H (4.5-7.5) Ur Specific [place] 1.012 (1.000-1.030) Urine Protein 1+ H (Negative) Urine Glucose (UA) Negative (Negative) Medications Administered Current Inpatient Medications Acetaminophen (Acetaminophen 325 Mg Tab) 650 mg PO Q4H PRN PRN Reason: Pain or Fever Stop: 08/30/22 01:45 Amlodipine Besylate (Amlodipine Besylate 5 Mg Tab) 10 mg PO DAILY JUDD Stop: 08/30/22 08:59 Last Admin: 07/31/22 08:55 Dose: 10 mg Atorvastatin Calcium (Atorvastatin 40 Mg Tab) 40 mg PO DAILY JUDD Stop: 08/30/22 08:59 Last Admin: 07/31/22 08:54 Dose: 40 mg Bisacodyl (Bisacodyl 10 Mg Supp) 10 mg TN DAILY PRN PRN Reason: Constipation Stop: 08/30/22 01:45 Cyanocobalamin (Cyanocobalamin (B-12) 500 Mcg Tablet) 2,000 mcg PO DAILY JUDD Stop: 08/30/22 08:59 Last Admin: 07/31/22 08:55 Dose: 2,000 mcg Dextrose (Dextrose 50% 50 Ml Syringe) 25 - 50 ml IV UD PRN; Protocol PRN Reason: Hypoglycemia Protocol Stop: 08/30/22 01:45 Docusate Sodium (Docusate Sodium 100 Mg Cap) 100 mg PO BID JUDD Stop: 08/30/22 08:59 Last Admin: 07/31/22 08:55 Dose: 100 mg Ferrous Sulfate (Ferrous Sulfate 325 Mg Tab) 325 mg PO BID JUDD Stop: 08/30/22 08:59 Last Admin: 07/31/22 08:55 Dose: 325 mg Glucagon (Glucagon For Inj 1 Mg Vial) 1 mg SQ UD PRN; Protocol PRN Reason: Hypoglycemia Protocol Stop: 08/30/22 01:45 Glucose (Glucose 40% Gel 15 Gm Tube) 15 - 30 gm PO UD PRN; Protocol PRN Reason: Hypoglycemia Protocol Stop: 08/30/22 01:45 Glucose (Glucose 10 Tab/Tube) 4 - 8 tab PO UD PRN; Protocol PRN Reason: Hypoglycemia Treatment Stop: 08/30/22 01:45 Hydralazine HCl (Hydralazine Hcl 25 Mg Tab) 75 mg PO TID [facility] Stop: 08/30/22 08:59 Last Admin: 07/31/22 13:57 Dose: 75 mg Cefepime HCl 2,000 mg/ Syringe 20 mls @ 5 mls/min IV Q24H JUDD; Protocol Stop: 08/10/22 01:59 Last Admin: 07/31/22 02:12 Dose: 5 mls/min Promethazine HCl 12.5 mg/ (Sodium Chloride) 50.5 mls @ 202 mls/hr IV Q6H PRN PRN Reason: Nausea And Vomiting Stop: 08/30/22 01:45 Insulin Aspart (Insulin Aspart Per Unit) 0 units SC ACHS [facility] Stop: 08/30/22 01:45 Last Admin: 07/31/22 12:26 Dose: 2 units Insulin Glargine (Lantus Per Unit Charge) 5 units SQ DAILY [facility] Stop: 08/30/22 02:49 Last Admin: 07/31/22 02:58 Dose: 5 units Levetiracetam (Levetiracetam 500 Mg Tab) 500 mg PO BID [facility] Stop: 08/30/22 08:59 Last Admin: 07/31/22 08:56 Dose: 500 mg Metoprolol Tartrate (Metoprolol Tartrate 25 Mg Tab) 25 mg PO BID JUDD Stop: 08/30/22 08:59 Last Admin: 07/31/22 08:56 Dose: 25 mg Miscellaneous (Carbohydrates For Hypoglycemia ) 15 - 30 gm PO UD PRN PRN Reason: Hypoglycemia Protocol Stop: 08/30/22 01:45 Polyethylene Glycol (Polyethylene (Miralax) 17 Gm Pack) 17 gm PO QDL PRN PRN Reason: Constipation Stop: 08/30/22 01:45 Senna/Docusate Sodium (Docusate Sodium/Senna 50/8.6mg Tab) 1 tab PO QDL PRN PRN Reason: Constipation Stop: 08/30/22 01:45
--- NOTE | 2022-07-31 22:49 | Electrocardiogram Report ---
Test Reason : Blood Pressure : / mmHG Vent. Rate : 079 BPM Atrial Rate : 079 BPM P-R Int : 286 ms QRS Dur : 154 ms QT Int : 402 ms P-R-T Axes : 063 -08 -01 degrees QTc Int : 460 ms Atrial-paced rhythm with prolonged AV conduction Right bundle branch block Abnormal ECG When compared with ECG of 05-FEB-2018 14:09, Electronic atrial pacemaker has replaced Sinus rhythm T wave inversion now evident in Inferior leads Confirmed by Abe Salter ([id number]) on 07/31/2022 10:49:25 PM Referred By: REFERRED SELF Confirmed By:Abe Salter
[2022-08-01] MEDS: CEFEPIME 2,000 MG in SYRINGE 0 ML IV SCH (01:08)
[2022-08-01 06:52] LABS: Hematocrit (blood only) 28.4 % (34.1-44.9); Hemoglobin 9.5 g/dl (12.0-16.0); Mean Corpuscular Hemoglobin 30.5 pg (25.0-34.0); Mean Corpuscular Hgb Conc 33.5 g/dL (32.0-36.0); Mean Corpuscular Volume 91.3 fL (80.0-100.0); Mean Platelet Volume 11.2 fL (9.4-12.3); Platelet Count 218 K/uL (130-400); RDW Coefficient of Variation 13.9 % (11.5-14.5); RDW Standard Deviation 45.1 fL (36.4-46.3); Red Blood Count 3.11 M/uL (3.93-5.22); White Blood Count 10.05 K/ul (4.8-10.8)
[2022-08-01 07:13] LABS: Estimated Average Glucose 154 mg/dl
[2022-08-01 07:35] LABS: Calcium 8.4 mg/dl (8.5-10.1); Creatinine Clr Calc Pharmacy 53.1 ml/min; Est GFR (African American) 64.4 ml/min; Est GFR (Non-African American) 55.5 ml/min; Potassium 4.6 mmol/L (3.5-5.1)
[2022-08-01 07:45] LABS: Ferritin 89.8 ng/ml (8-388)
[2022-08-01] MEDS: INSULIN ASPART PER UNIT SC SCH ×4 (08:42→20:36)
[2022-08-01] MEDS: LANTUS PER UNIT CHARGE SQ SCH (08:43)
[2022-08-01] MEDS: METOPROLOL TARTRATE 25 MG TAB PO SCH ×2 (08:47→20:43)
[2022-08-01] MEDS: hydrALAZINE HCL 25 MG TAB PO SCH ×3 (08:47→20:46)
[2022-08-01] MEDS: DOCUSATE SODIUM 100 MG CAP PO SCH ×2 (08:47→20:50)
[2022-08-01] MEDS: FERROUS SULFATE 325 MG TAB PO SCH ×2 (08:47→20:50)
[2022-08-01] MEDS: ATORVASTATIN 40 MG TAB PO SCH (08:48)
[2022-08-01] MEDS: CYANOCOBALAMIN (B-12) 500 MCG TABLET PO SCH (08:48)
[2022-08-01] MEDS: levETIRAcetam 500 MG TAB PO SCH ×2 (08:48→20:43)
[2022-08-01] MEDS: amLODIPine BESYLATE 5 MG TAB PO SCH (08:48)
[2022-08-01 09:53] LABS: Folate (Folic Acid) 5.94 ng/ml (>5.38)
[2022-08-01 09:54] LABS: Vitamin B12 > 1500 pg/ml (180-914)
[2022-08-01] MEDS: ADVANCED PROBIOTIC 1250 MG CAPSULE PO SCH (13:30)
--- NOTE | 2022-08-01 14:30 | Hospitalist Progress Note ---
Date of Service August 01, 2022 Assessment & Plan (1) Acute metabolic encephalopathy: Plan Acute metabolic encephalopathy Acute UTI Likely metabolic encephalopathy secondary to underlying urine infection. Admitting urine culture with contamination. Admitting head imagings consistent with postsurgical changes and no progression from postsurgical status [confirmed by ED physician with patient's neurosurgeon Dr. Willingham: [phone]] Patient was alert and oriented x3 yesterday, oriented x2 today, not oriented to situation/time. Cefepime 07/31 to Rocephin 08/01. Continue to monitor. Electrolyte abnormality: Hypomagnesemia, hyperkalemia --> replete as appropriate, lisinopril on hold due to hyperkalemia, resume once potassium reliably down. If hypertensive, will need to control with hydralazine and alternative agent in this post op state. Post-operative state: Plan: s/p meningioma removal on 07/16. Cont keppra for seizure prophylaxis in post-op state. Watch for side effects of this including drowsiness/agitation. Also is post pacemaker placement last week PT. Contacted Dr. Willingham's office today as patient missed her appointment scheduled for today d/t being in hospital, regarding approach to her Eliquis resumption and Keppra cessation. Informed by his office that they have rescheduled her, will let me know any recs after getting touch with Dr. Willingham via [employer] text to me per Dr. Willingham's office. Subdural hematoma: Plan: per notes, imaging was reviewed with neurosugery and there has been no worsening of already known post-operative subdural hematoma and SAH seen on current imaging. Patient is generally weak but is mentating clearly and doesn't have any clear focal neurologic deficits. Anemia: Hb Appears closer to her baseline, iron profile with low iron and low normal folate. Continue with home iron supplement, will add folic acid. No evidence of acute bleeding. Had recent neurosurgery [above] Other chronic medical conditions: DM type II, CKD stage III, A. fib [Eliquis on hold until follow-up with [facility] [place] 08/01] -->> continue with/resume home meds as and when appropriate. Plan to continue Keppra and continue to hold Eliquis until seen by neurosurgeon 08/01, try to contact the neurosurgeons office today regarding this matter, awaiting further recs, I was told that they will reach out to me via [employer] text if I need to contact them again, for now I have been informed that she will be rescheduled. DVT prophylaxis: SCDs/ambulation Full code Dispo: PT/OT, pending mental status improvement, likely DC tomorrow. Admission and Anticipated Discharge Date Admission Date: July 30, 2022 Subjective Patient seen and examined at bedside as a follow-up of acute metabolic encephalopathy, acute UTI, recent history of status post meningioma removal on 07/16 and status post pacemaker placement last week [employer]CTOR [employer] PODIATRIC MEDICINE. Next Patient was lying in bed, on room air, NAD, slow to respond, oriented x2 [noted to be oriented x3 yesterday per prior attending], denied any new acute events overnight, reports eating breakfast in a.m., denies any headache or dizziness or chest pain or sore throat or cough or other review of symptoms. Physical Exam Physical Exam: GENERAL: Alert and oriented x2, slow response. NAD, on RA. Ap pears old/frail/weak/ill. HEENT: No pallor, no icterus. Pupils equal, round and reactive to light. Oral mucosa moist. NECK: No JVD, no neck masses. HEART: S1 and S2 heard. Regular rate and rhythm. No murmur, no gallop. + pacemaker with well-healing incision site on left anterior chest RESPIRATORY SYSTEM: Normal AP diameter. No accessory muscle use. No wheezing, no crackles. ABDOMEN: Soft, bowel sounds present, nontender, no distention. CENTRAL NERVOUS SYSTEM: No facial droop. Speech is clear. Slow to respond. EXTREMITIES: No edema, no erythema seen. Results & Data Results & Data ([facility]) Vital Signs (Past 12 Hours) Vital Signs Temp Pulse Pulse Resp BP Pulse Ox O2 Del Method 08/01/22 12:04 36.8 C 86 18 122/72 94 Room Air 08/01/22 10:07 Room Air 08/01/22 08:02 36.7 C 73 16 152/73 H 94 Room Air 08/01/22 06:55 68 08/01/22 03:09 36.4 C L 71 18 149/78 H 94
[2022-08-01] MEDS: FOLIC ACID 1 MG TAB PO SCH (16:55)
[2022-08-01] MEDS: cefTRIAXone SODIUM 2,000 MG in DEXTROSE 5% 50 ML IV SCH (20:37)
[2022-08-01] MEDS ORDERED: ACETAMINOPHEN 1,000 MG/100 ML VIAL IV STA (23:49)
[2022-08-01] MEDS ORDERED: SODIUM CHLORIDE 0.9% 1000ML 1,000 ML IV ONE (23:54)
[2022-08-02 00:43] LABS: Basophils # (auto) 0.02 K/uL (0-0.2); Basophils % (auto) 0.1 %; Eosinophils # (auto) 0.05 K/uL (0-0.50); Eosinophils % (auto) 0.4 %; Hematocrit (blood only) 27.5 % (34.1-44.9); Hemoglobin 9.4 g/dl (12.0-16.0); Immature Granulocytes # (auto) 0.09 K/uL (0.00-0.02); Immature Granulocytes % (auto) 0.7 %; Lymphocytes # (auto) 1.05 K/uL (1.2-3.4); Lymphocytes % (auto) 7.8 %; Mean Corpuscular Hemoglobin 31.1 pg (25.0-34.0); Mean Corpuscular Hgb Conc 34.2 g/dL (32.0-36.0); Mean Corpuscular Volume 91.1 fL (80.0-100.0); Mean Platelet Volume 11.3 fL (9.4-12.3); Monocytes # (auto) 1.49 K/uL (0.24-0.82); Monocytes % (auto) 11.1 %; Neutrophils # (auto) 10.74 K/uL (1.4-6.5); Neutrophils % (auto) 79.9 %; Platelet Count 226 K/uL (130-400); RDW Coefficient of Variation 13.9 % (11.5-14.5); RDW Standard Deviation 45.9 fL (36.4-46.3); Red Blood Count 3.02 M/uL (3.93-5.22); White Blood Count 13.44 K/ul (4.8-10.8)
[2022-08-02 01:06] LABS: BUN Creatinine Ratio 27.5 (10-20); Calcium 8.4 mg/dl (8.5-10.1); Creatinine Clr Calc Pharmacy 50.5 ml/min; Est GFR (African American) 60.6 ml/min; Est GFR (Non-African American) 52.3 ml/min; Magnesium 1.7 mg/dl (1.7-2.4); Potassium 4.6 mmol/L (3.5-5.1)
[2022-08-02] MEDS ORDERED: MAGNESIUM SULFATE / D5W 1 GM/100 ML BAG IV ONE (01:24)
[2022-08-02] MEDS: INSULIN ASPART PER UNIT SC SCH ×4 (08:08→20:37)
[2022-08-02] MEDS: amLODIPine BESYLATE 5 MG TAB PO SCH (08:26)
[2022-08-02] MEDS: DOCUSATE SODIUM 100 MG CAP PO SCH ×2 (08:27→19:23)
[2022-08-02] MEDS: CYANOCOBALAMIN (B-12) 500 MCG TABLET PO SCH (08:27)
[2022-08-02] MEDS: ATORVASTATIN 40 MG TAB PO SCH (08:27)
[2022-08-02] MEDS: hydrALAZINE HCL 25 MG TAB PO SCH ×3 (08:27→19:24)
[2022-08-02] MEDS: FOLIC ACID 1 MG TAB PO SCH (08:28)
[2022-08-02] MEDS: FERROUS SULFATE 325 MG TAB PO SCH ×2 (08:28→19:23)
[2022-08-02] MEDS: METOPROLOL TARTRATE 25 MG TAB PO SCH ×2 (08:28→19:24)
[2022-08-02] MEDS: ADVANCED PROBIOTIC 1250 MG CAPSULE PO SCH (08:29)
[2022-08-02] MEDS: levETIRAcetam 500 MG TAB PO SCH ×2 (08:29→19:59)
[2022-08-02] MEDS: LANTUS PER UNIT CHARGE SQ SCH (08:38)
--- NOTE | 2022-08-02 09:36 | CT Scan Report ---
CT head/brain wo con CLINICAL HISTORY: ams Technique: Contiguous axial CT images of the head were acquired from the base of the skull to the tristen joshua without intravenous contrast administration. Images were viewed in brain, subdural and bone [facility]. Automated dose lowering techniques and/or adjustment according to patient size were utilized for this exam. Comparison: Comparison is made to CT head 07/30/2022 Findings: Patient is status post left frontal craniotomy with a small hemorrhage and pneumocephalus noted at th e craniotomy site. Right frontal subdural hyperdensity is unchanged. Edema is noted in the left front al lobe. There is trace hyperdensity in the high parafalcine sulci which ut may represent trace subar achnoid hemorrhage. Old lacunar infarct in the right basal ganglia is unchanged. Imaged portions of the paranasal sinuses and mastoid air cells are clear. The orbits appear normal. There are no acute fractures of the calvaria or scalp swelling. Impression: Postsurgical changes are again noted including right frontal hyperdensity, postcraniotomy changes, pn eumocephalus, and adjacent subdural hematoma, and subarachnoid hemorrhage in the left frontal sulci. No enlargement of intracranial hemorrhage is seen. ACT 112: Negative or not required by law. Electronically signed by: David Muñoz M.D. 08/02/2022 9:34 AM
--- NOTE | 2022-08-02 10:20 | Hospitalist Progress Note ---
Date of Service August 02, 2022 Assessment & Plan (1) Acute metabolic encephalopathy: Plan Acute metabolic encephalopathy Acute UTI Likely metabolic encephalopathy secondary to underlying urine infection. Admitting urine culture with contamination. Admitting head CT consistent with postsurgical changes and no progression from postsurgical status [confirmed by ED physician with patient's neurosurgeon Dr. Willingham: [phone]] Currently on ceftriaxone Considering increasing leukocytosis to 13K. Will get blood cultures and repeat UA. Electrolyte abnormality: Hypomagnesemia, hyperkalemia Hypomagnesemia was repleted Hyperkalemia resovled Lisinopril on hold due to hyperkalemia Post-operative state: Plan: s/p meningioma removal on 07/16. Continue keppra for seizure prophylaxis in post-op state. Monitor for side effects of this including drowsiness/agitation. Also reported to be post pacemaker placement last week. Will contact Dr. Willingham's office as patient missed her appointment scheduled for 08/01/22 regarding approach to her Eliquis resumption and Keppra cessation. Subdural hematoma: Plan: Per notes, imaging was reviewed with neurosugery and there has been no worsening of already known post-operative subdural hematoma and SAH seen on current imaging. Continue to monitor mental status Anemia: Hb Appears closer to her baseline Iron profile with low iron and low normal folate. Continue with home iron supplement, folate. Other chronic medical conditions: DM type II CKD stage III A. fib [Eliquis on hold until follow-up with [facility] [place] 08/01] -->> continue with/resume home meds as and when appropriate. Plan to continue Keppra and continue to hold Eliquis until seen by neurosurgeon DVT prophylaxis: SCDs/ambulation Full code Dispo: PT/OT Admission and Anticipated Discharge Date Admission Date: July 30, 2022 Subjective Seen and examined. Patient appears weak. Patient is alert and oriented to person and time. Not oriented to place [thinks that she is at [facility]] Denies any chest pain, shortness of breath, palpitations Denies any nausea, vomiting, abdominal pain, diarrhea constipation Denies dysuria, frequency, urgency Physical Exam Constitutional: + well hydrated; no acute distress Chronic ill appearing [place] over anterior scalp recent surgical site Eyes: PERRL, conjunctivae normal, anicteric sclerae ENMT: external ear and nose normal, oropharynx normal Respiratory: normal respiratory effort, lungs clear to auscultation Cardiovascular: Rate/Rhythm: regular rate and regular rhythm S1 S2 Gastrointestinal (Abdomen): normal bowel sounds, soft, nontender, no hepatosplenomegaly Musculoskeletal: No pedal edema Neurologic: PERRL, EOMI, accommodation nl, no face palsy, no dysarthria Genitourinary: [place] in place Results & Data Results & Data ([facility]) Vital Signs (Past 12 Hours) Vital Signs Temp Pulse Pulse Resp BP BP Pulse Ox 08/02/22 07:51 36.3 C L 61 18 137/70 99 08/02/22 03:46 36.9 C 71 16 135/65 94 08/02/22 01:20 37.8 C H 08/02/22 00:56 08/01/22 22:15 76 08/01/22 23:02 37.8 C H 83 17 147/78 H 94 O2 Del Method 08/02/22 07:51 Room Air 08/02/22 03:46 Room Air 08/02/22 01:20 08/02/22 00:56 Room Air 08/01/22 22:15 08/01/22 23:02 Laboratory Results Abnormal lab results 08/01/22 08/01/22 08/01/22 Range/Units 11:44 16:33 20:21 WBC (4.8-10.8) K/ul RBC (3.93-5.22) M/uL Hgb (12.0-16.0) g/dl Hct (34.1-44.9) % Neut # (Auto) (1.4-6.5) K/uL Lymph # (Auto) (1.2-3.4) K/uL Gordon # (Auto) (0.24-0.82) K/uL Immature Gran # (Auto) (0.00-0.02) K/uL Sodium (136-145) mmol/L Carbon Dioxide (21-32) mmol/L BUN (6-23) mg/dl BUN/Creatinine Ratio (10-20) Glucose (70-99(Fasting)) mg/dl POC Glucose 165 H 162 H 149 H (70-99) mg/dl Calcium (8.5-10.1) mg/dl 08/02/22 08/02/22 08/02/22 Range/Units 00:01 00:29 00:29 WBC 13.44 H (4.8-10.8) K/ul RBC 3.02 L (3.93-5.22) M/uL Hgb 9.4 L (12.0-16.0) g/dl Hct 27.5 L (34.1-44.9) % Neut # (Auto) 10.74 H (1.4-6.5) K/uL Lymph # (Auto) 1.05 L (1.2-3.4) K/uL Gordon # (Auto) 1.49 H (0.24-0.82) K/uL Immature Gran # (Auto) 0.09 H (0.00-0.02) K/uL Sodium 131 L (136-145) mmol/L Carbon Dioxide 20 L (21-32) mmol/L BUN 28 H (6-23) mg/dl BUN/Creatinine Ratio 27.5 H (10-20) Glucose 143 H (70-99(Fasting)) mg/dl POC Glucose 148 H (70-99) mg/dl Calcium 8.4 L (8.5-10.1) mg/dl 08/02/22 Range/Units 07:41 WBC (4.8-10.8) K/ul RBC (3.93-5.22) M/uL Hgb (12.0-16.0) g/dl Hct (34.1-44.9) % Neut # (Auto) (1.4-6.5) K/uL Lymph # (Auto) (1.2-3.4) K/uL Gordon # (Auto) (0.24-0.82) K/uL Immature Gran # (Auto) (0.00-0.02) K/uL Sodium (136-145) mmol/L Carbon Dioxide (21-32) mmol/L BUN (6-23) mg/dl BUN/Creatinine Ratio (10-20) Glucose (70-99(Fasting)) mg/dl POC Glucose 139 H (70-99) mg/dl Calcium (8.5-10.1) mg/dl
[2022-08-02 13:18] LABS: Appearance Urine Clear (Clear); Bacteria Urine Automated Negative (Negative); Bilirubin Urine Negative (Negative); Blood Urine Trace (Negative); Color Urine Yellow; Epithelial Cell Urine Auto 0-5 /lpf (0-5); Glucose Urine UA Negative (Negative); Ketones Urine Negative (Negative); Leukocyte Esterase Urine 2+ (Negative); Nitrite Urine Negative (Negative); Protein Urine 1+ (Negative); RBC Urine Automated 0-4 /hpf (0-4); Specific Gravity Urine 1.016 (1.000-1.030); Urobilinogen Urine Negative (Negative); pH Urine 5.5 (4.5-7.5)
[2022-08-02] MEDS: ACETAMINOPHEN 325 MG TAB PO PRN (19:22)
[2022-08-02] MEDS: cefTRIAXone SODIUM 2,000 MG in DEXTROSE 5% 50 ML IV SCH (20:38)
[2022-08-03] MEDS: ACETAMINOPHEN 325 MG TAB PO PRN (06:48)
[2022-08-03 07:26] LABS: Hematocrit (blood only) 28.6 % (34.1-44.9); Hemoglobin 9.4 g/dl (12.0-16.0); Mean Corpuscular Hemoglobin 30.3 pg (25.0-34.0); Mean Corpuscular Hgb Conc 32.9 g/dL (32.0-36.0); Mean Corpuscular Volume 92.3 fL (80.0-100.0); Mean Platelet Volume 11.8 fL (9.4-12.3); Platelet Count 225 K/uL (130-400); RDW Coefficient of Variation 14.1 % (11.5-14.5); RDW Standard Deviation 47.2 fL (36.4-46.3); White Blood Count 11.23 K/ul (4.8-10.8)
[2022-08-03 07:44] LABS: Albumin Level 3.2 gm/dl (3.4-5.0); BUN Creatinine Ratio 27.6 (10-20); Bilirubin,Total 0.6 mg/dl (0.2-1.0); Calcium 8.6 mg/dl (8.5-10.1); Creatinine Clr Calc Pharmacy 51.6 ml/min; Est GFR (African American) 63.6 ml/min; Est GFR (Non-African American) 54.9 ml/min; Globulin 3.3 gm/dl (2.5-4.0); Magnesium 1.9 mg/dl (1.7-2.4); Phosphorus 2.8 mg/dl (2.5-4.9); Potassium 4.3 mmol/L (3.5-5.1); Total Protein 6.5 gm/dl (6.0-8.3)
[2022-08-03] MEDS: CYANOCOBALAMIN (B-12) 500 MCG TABLET PO SCH (08:47)
[2022-08-03] MEDS: ADVANCED PROBIOTIC 1250 MG CAPSULE PO SCH (08:48)
[2022-08-03] MEDS: METOPROLOL TARTRATE 25 MG TAB PO SCH ×2 (08:48→20:48)
[2022-08-03] MEDS: levETIRAcetam 500 MG TAB PO SCH ×2 (08:48→20:45)
[2022-08-03] MEDS: amLODIPine BESYLATE 5 MG TAB PO SCH (08:49)
[2022-08-03] MEDS: ATORVASTATIN 40 MG TAB PO SCH (08:49)
[2022-08-03] MEDS: hydrALAZINE HCL 25 MG TAB PO SCH ×3 (08:49→20:46)
[2022-08-03] MEDS: DOCUSATE SODIUM 100 MG CAP PO SCH ×2 (08:49→20:45)
[2022-08-03] MEDS: FOLIC ACID 1 MG TAB PO SCH (08:49)
[2022-08-03] MEDS: FERROUS SULFATE 325 MG TAB PO SCH ×2 (08:49→20:47)
[2022-08-03] MEDS: INSULIN ASPART PER UNIT SC SCH ×4 (09:11→21:00)
[2022-08-03] MEDS: LANTUS PER UNIT CHARGE SQ SCH ×2 (09:13→21:01)
--- NOTE | 2022-08-03 11:51 | Hospitalist Progress Note ---
Date of Service August 03, 2022 Assessment & Plan (1) Acute metabolic encephalopathy: Plan Acute metabolic encephalopathy Acute UTI Likely metabolic encephalopathy secondary to underlying urine infection. Admitting urine culture with contamination. Admitting head CT consistent with postsurgical changes and no progression from postsurgical status [confirmed by ED physician with patient's neurosurgeon Dr. Sorenson: [phone]] Currently on ceftriaxone Tmax 37.8 Infectious workup negative so far Electrolyte abnormality: Hypomagnesemia, hyperkalemia Hypomagnesemia was repleted Hyperkalemia resolved Post-operative state: Plan: s/p meningioma removal on 07/16. Continue keppra for seizure prophylaxis in post-op state. Monitor for side effects of this including drowsiness/agitation. Also reported to be post pacemaker placement last week. I called Dr. Sorenson's office as patient missed her appointment scheduled for 08/01/22 regarding approach to her Eliquis resumption and Keppra cessation. I spoke with Daren Galindo PA-C at the office who discussed with Dr Sorenson. Recommends continuing to hold eliquis and continue keppra until patient follows op with them. Also recommends ok to remove kassie Subdural hematoma: Plan: Per notes, imaging was reviewed with neurosugery and there has been no worsening of already known post-operative subdural hematoma and SAH seen on current imaging. Continue to monitor mental status Anemia: Hb Appears closer to her baseline Iron profile with low iron and low normal folate. Continue with home iron supplement, folate. Other chronic medical conditions: DM type II CKD stage III A. fib [Eliquis on hold until follow-up with [facility] [place] neurosurgeon] DVT prophylaxis: SCDs/ambulation Full code Dispo: CM working on placement Admission and Anticipated Discharge Date Admission Date: July 30, 2022 Subjective Seen and examined. Patient denies any new complaints Denies any headache or dizziness Reports weakness Denies any chest pain, shortness of breath, palpitations Denies any nausea, vomiting, abdominal pain, diarrhea constipation Denies dysuria, frequency, urgency Physical Exam Constitutional: + well hydrated; no acute distress Scalp kassie Eyes: PERRL, conjunctivae normal, anicteric sclerae ENMT: external ear and nose normal, oropharynx normal Respiratory: normal respiratory effort, lungs clear to auscultation Cardiovascular: Rate/Rhythm: regular rate and regular rhythm S1 S2 Gastrointestinal (Abdomen): normal bowel sounds, soft, nontender, no hepatosplenomegaly Neurologic: PERRL, EOMI, accommodation nl, no face palsy, no dysarthria Results & Data Results & Data ([facility]) Vital Signs (Past 12 Hours) Vital Signs Temp Pulse Resp BP Pulse Ox O2 Del Method 08/03/22 07:19 36.7 C 86 18 155/81 H 93 Room Air 08/03/22 02:35 37.1 C 80 20 148/69 H 95 Room Air Laboratory Results Abnormal lab results 08/02/22 08/02/22 08/03/22 Range/Units 16:40 20:02 06:36 WBC 11.23 H (4.8-10.8) K/ul RBC 3.10 L (3.93-5.22) M/uL Hgb 9.4 L (12.0-16.0) g/dl Hct 28.6 L (34.1-44.9) % RDW Std Deviation 47.2 H (36.4-46.3) fL Sodium (136-145) mmol/L Carbon Dioxide (21-32) mmol/L BUN (6-23) mg/dl BUN/Creatinine Ratio (10-20) Glucose (70-99(Fasting)) mg/dl POC Glucose 190 H 194 H (70-99) mg/dl AST (13-39) U/L Albumin (3.4-5.0) gm/dl 08/03/22 08/03/22 08/03/22 Range/Units 06:36 07:44 11:49 WBC (4.8-10.8) K/ul RBC (3.93-5.22) M/uL Hgb (12.0-16.0) g/dl Hct (34.1-44.9) % RDW Std Deviation (36.4-46.3) fL Sodium 133 L (136-145) mmol/L Carbon Dioxide 19 L (21-32) mmol/L BUN 27 H (6-23) mg/dl BUN/Creatinine Ratio 27.6 H (10-20) Glucose 141 H (70-99(Fasting)) mg/dl POC Glucose 175 H 305 H* (70-99) mg/dl AST 10 L (13-39) U/L Albumin 3.2 L (3.4-5.0) gm/dl 08/03/22 Range/Units 11:51 WBC (4.8-10.8) K/ul RBC (3.93-5.22) M/uL Hgb (12.0-16.0) g/dl Hct (34.1-44.9) % RDW Std Deviation (36.4-46.3) fL Sodium (136-145) mmol/L Carbon Dioxide (21-32) mmol/L BUN (6-23) mg/dl BUN/Creatinine Ratio (10-20) Glucose (70-99(Fasting)) mg/dl POC Glucose 303 H* (70-99) mg/dl AST (13-39) U/L Albumin (3.4-5.0) gm/dl
--- NOTE | 2022-08-03 15:26 | Communication Note ---
Date of Service: August 03, 2022 Craniotomy kassie removed without event as per request of hospitalists after discussions with patient's outside hospital neuro surgery team. Incision is clean/dry/intact, well approximated, healing well, without signs of infection. We will sign off, if any new concerns arise with incision would recommend reaching out to patient's neuro surgeon.
[2022-08-03] MEDS: cefTRIAXone SODIUM 2,000 MG in DEXTROSE 5% 50 ML IV SCH (22:48)
[2022-08-04 07:58] LABS: Albumin Globulin Ratio 0.9 (0.9-2); BUN Creatinine Ratio 28.2 (10-20); Bilirubin,Total 0.4 mg/dl (0.2-1.0); Calcium 8.1 mg/dl (8.5-10.1); Creatinine Clr Calc Pharmacy 46.8 ml/min; Est GFR (African American) 55.3 ml/min; Est GFR (Non-African American) 47.7 ml/min; Globulin 3.2 gm/dl (2.5-4.0); Magnesium 1.8 mg/dl (1.7-2.4); Phosphorus 2.8 mg/dl (2.5-4.9); Potassium 4.7 mmol/L (3.5-5.1); Total Protein 6.2 gm/dl (6.0-8.3)
[2022-08-04] MEDS: levETIRAcetam 500 MG TAB PO SCH ×2 (08:43→20:45)
[2022-08-04] MEDS: DOCUSATE SODIUM 100 MG CAP PO SCH ×2 (08:43→20:43)
[2022-08-04] MEDS: amLODIPine BESYLATE 5 MG TAB PO SCH (08:43)
[2022-08-04] MEDS: ATORVASTATIN 40 MG TAB PO SCH (08:43)
[2022-08-04] MEDS: FERROUS SULFATE 325 MG TAB PO SCH ×2 (08:43→20:44)
[2022-08-04] MEDS: ADVANCED PROBIOTIC 1250 MG CAPSULE PO SCH (08:43)
[2022-08-04] MEDS: CYANOCOBALAMIN (B-12) 500 MCG TABLET PO SCH (08:43)
[2022-08-04] MEDS: FOLIC ACID 1 MG TAB PO SCH (08:44)
[2022-08-04] MEDS: INSULIN ASPART PER UNIT SC SCH ×4 (08:44→20:45)
[2022-08-04] MEDS: hydrALAZINE HCL 25 MG TAB PO SCH ×3 (08:44→20:45)
[2022-08-04] MEDS: METOPROLOL TARTRATE 25 MG TAB PO SCH ×2 (08:44→20:43)
[2022-08-04] MEDS: LANTUS PER UNIT CHARGE SQ SCH ×2 (08:50→20:46)
--- NOTE | 2022-08-04 13:31 | Hospitalist Progress Note ---
Date of Service August 04, 2022 Assessment & Plan (1) Acute metabolic encephalopathy: Plan Acute metabolic encephalopathy Acute UTI Likely metabolic encephalopathy secondary to underlying urine infection. Admitting urine culture with contamination. Admitting head CT consistent with postsurgical changes and no progression from postsurgical status [confirmed by ED physician with patient's neurosurgeon Dr. Sorenson: [phone]] Deescalate to cefdinir to complete 5 day treatment for possible UTI Encephalopathy has resolved Electrolyte abnormality: Hypomagnesemia, hyperkalemia Hypomagnesemia was repleted Hyperkalemia resolved Post-operative state: Plan: s/p meningioma removal on 07/16. Continue keppra for seizure prophylaxis in post-op state. Monitor for side effects of this including drowsiness/agitation. Also reported to be post pacemaker placement last week. I called Dr. Sorenson's office as patient missed her appointment scheduled for 08/01/22 regarding approach to her Eliquis resumption and Keppra cessation. On 08/03/22, I spoke with Daren Galindo PA-C at the office who discussed with Dr Sorenson. Recommends continuing to hold eliquis and continue keppra until patient follows op with them. Also recommended ok to remove kassie. Surgical stables removed Subdural hematoma: Plan: Per notes, imaging was reviewed with neurosugery and there has been no worsening of already known post-operative subdural hematoma and SAH seen on current imaging. Continue to monitor mental status Anemia: Hb Appears closer to her baseline Iron profile with low iron and low normal folate. Continue with home iron supplement, folate. Other chronic medical conditions: DM type II CKD stage III A. fib [Eliquis on hold until follow-up with [facility] neurosurgeon] DVT prophylaxis: SCDs/ambulation Full code Dispo: CM working on placement Admission and Anticipated Discharge Date Admission Date: July 30, 2022 Subjective Seen and examined. Patient denies any new complaints Denies any headache or dizziness Denies any chest pain, shortness of breath, palpitations Denies any nausea, vomiting, abdominal pain, diarrhea constipation Denies dysuria, frequency, urgency Physical Exam Constitutional: + well hydrated; no acute distress Surgical scar on scalp Eyes: PERRL, conjunctivae normal, anicteric sclerae ENMT: external ear and nose normal, oropharynx normal Respiratory: normal respiratory effort, lungs clear to auscultation Cardiovascular: Rate/Rhythm: regular rate and regular rhythm S1 S2 Gastrointestinal (Abdomen): normal bowel sounds, soft, nontender, no hepatosplenomegaly Neurologic: PERRL, EOMI, accommodation nl, no face palsy, no dysarthria Results & Data Results & Data ([facility]) Vital Signs (Past 12 Hours) Vital Signs Temp Pulse Pulse Resp BP BP Pulse Ox 08/04/22 12:00 37.4 C 85 18 112/56 L 93 08/04/22 08:00 08/04/22 08:00 37.3 C 82 18 125/71 94 08/04/22 07:33 89 08/04/22 02:51 36.8 C 81 18 136/68 93 O2 Del Method 08/04/22 12:00 Room Air 08/04/22 08:00 Room Air 08/04/22 08:00 Room Air 08/04/22 07:33 08/04/22 02:51 Room Air
[2022-08-04] MEDS: CEFDINIR 300 MG CAP PO SCH (20:43)
[2022-08-05 07:07] LABS: Calcium 7.9 mg/dl (8.5-10.1); Creatinine Clr Calc Pharmacy 57.3 ml/min; Est GFR (African American) 72.4 ml/min; Est GFR (Non-African American) 62.5 ml/min; Potassium 4.4 mmol/L (3.5-5.1)
[2022-08-05] MEDS: FOLIC ACID 1 MG TAB PO SCH (08:19)
[2022-08-05] MEDS: levETIRAcetam 500 MG TAB PO SCH ×2 (08:19→20:40)
[2022-08-05] MEDS: FERROUS SULFATE 325 MG TAB PO SCH ×2 (08:19→20:41)
[2022-08-05] MEDS: CYANOCOBALAMIN (B-12) 500 MCG TABLET PO SCH (08:19)
[2022-08-05] MEDS: amLODIPine BESYLATE 5 MG TAB PO SCH (08:19)
[2022-08-05] MEDS: METOPROLOL TARTRATE 25 MG TAB PO SCH ×2 (08:20→20:42)
[2022-08-05] MEDS: DOCUSATE SODIUM 100 MG CAP PO SCH ×2 (08:20→20:41)
[2022-08-05] MEDS: ADVANCED PROBIOTIC 1250 MG CAPSULE PO SCH (08:20)
[2022-08-05] MEDS: CEFDINIR 300 MG CAP PO SCH ×2 (08:20→20:41)
[2022-08-05] MEDS: ATORVASTATIN 40 MG TAB PO SCH (08:20)
[2022-08-05] MEDS: hydrALAZINE HCL 25 MG TAB PO SCH ×3 (08:20→20:39)
[2022-08-05] MEDS: LANTUS PER UNIT CHARGE SQ SCH ×2 (08:37→20:39)
[2022-08-05] MEDS: INSULIN ASPART PER UNIT SC SCH ×4 (08:37→20:40)
--- NOTE | 2022-08-05 11:48 | Hospitalist Progress Note ---
Date of Service August 05, 2022 Assessment & Plan (1) Acute metabolic encephalopathy: Plan Acute metabolic encephalopathy Acute UTI Likely metabolic encephalopathy secondary to underlying urine infection. Admitting urine culture with contamination. Admitting head CT consistent with postsurgical changes and no progression from postsurgical status [confirmed by ED physician with patient's neurosurgeon Dr. Sorenson: [phone]] On cefdinir to complete 5 day treatment for possible UTI Encephalopathy has resolved Electrolyte abnormality: Hypomagnesemia, hyperkalemia Hypomagnesemia was repleted Hyperkalemia resolved Post-operative state: s/p meningioma removal on 07/16. Continue keppra for seizure prophylaxis in post-op state. Monitor for side effects of this including drowsiness/agitation. Also reported to be post pacemaker placement last week. I called Dr. Sorenson's office as patient missed her appointment scheduled for 08/01/22 regarding approach to her Eliquis resumption and Keppra cessation. On 08/03/22, I spoke with Daren Galindo PA-C at the office who discussed with Dr Sorenson. Recommends continuing to hold eliquis and continue keppra until patient follows op with them. Also recommended ok to remove kassie. Surgical stables have been removed Subdural hematoma: Per notes, imaging was reviewed with neurosugery and there has been no worsening of already known post-operative subdural hematoma and SAH seen on current imaging. Continue to monitor mental status Anemia: Hb Appears closer to her baseline Iron profile with low iron and low normal folate. Continue with home iron supplement, folate. Other chronic medical conditions: DM type II CKD stage III A. fib [Eliquis on hold until follow-up with [facility] neurosurgeon] DVT prophylaxis: SCDs/ambulation Full code Dispo: CM working on placement Admission and Anticipated Discharge Date Admission Date: July 30, 2022 Subjective Seen and examined. Patient denies any new complaints Denies any headache or dizziness Denies any chest pain, shortness of breath, palpitations Denies any nausea, vomiting, abdominal pain, diarrhea constipation Denies any dysuria, frequency, urgency Physical Exam Constitutional: + well hydrated; no acute distress Eyes: PERRL, conjunctivae normal, anicteric sclerae ENMT: external ear and nose normal, oropharynx normal Respiratory: normal respiratory effort, lungs clear to auscultation Cardiovascular: Rate/Rhythm: regular rate and regular rhythm S1 S2 Gastrointestinal (Abdomen): normal bowel sounds, soft, nontender, no hepatosplenomegaly Musculoskeletal: No pedal edema Neurologic: PERRL, EOMI, accommodation nl, no face palsy, no dysarthria Psychiatric: AOx 3, responds slowly but appropriately Results & Data Results & Data ([facility]) Vital Signs (Past 12 Hours) Vital Signs Temp Pulse Pulse Resp BP BP Pulse Ox 08/05/22 11:07 36.6 C 68 18 132/74 95 08/05/22 07:57 36.4 C L 75 18 127/73 96 08/05/22 07:20 78 08/05/22 03:16 36.6 C 71 18 133/88 94 08/05/22 04:16 73 O2 Del Method 08/05/22 11:07 Room Air 08/05/22 07:57 Room Air 08/05/22 07:20 08/05/22 03:16 Room Air 08/05/22 04:16 Laboratory Results Abnormal lab results 08/04/22 08/04/22 08/05/22 Range/Units 16:59 19:58 06:05 Sodium 133 L (136-145) mmol/L Carbon Dioxide 20 L (21-32) mmol/L BUN 29 H (6-23) mg/dl BUN/Creatinine Ratio 33.0 H (10-20) Glucose 139 H (70-99(Fasting)) mg/dl POC Glucose 175 H 158 H (70-99) mg/dl Calcium 7.9 L (8.5-10.1) mg/dl 08/05/22 08/05/22 Range/Units 07:44 11:49 Sodium (136-145) mmol/L Carbon Dioxide (21-32) mmol/L BUN (6-23) mg/dl BUN/Creatinine Ratio (10-20) Glucose (70-99(Fasting)) mg/dl POC Glucose 139 H 253 H (70-99) mg/dl Calcium (8.5-10.1) mg/dl
[2022-08-06] MEDS: CYANOCOBALAMIN (B-12) 500 MCG TABLET PO SCH (08:32)
[2022-08-06] MEDS: FERROUS SULFATE 325 MG TAB PO SCH ×2 (08:32→20:53)
[2022-08-06] MEDS: ADVANCED PROBIOTIC 1250 MG CAPSULE PO SCH (08:32)
[2022-08-06] MEDS: DOCUSATE SODIUM 100 MG CAP PO SCH ×2 (08:32→20:53)
[2022-08-06] MEDS: FOLIC ACID 1 MG TAB PO SCH (08:33)
[2022-08-06] MEDS: CEFDINIR 300 MG CAP PO SCH (08:33)
[2022-08-06] MEDS: ATORVASTATIN 40 MG TAB PO SCH (08:33)
[2022-08-06] MEDS: levETIRAcetam 500 MG TAB PO SCH ×2 (08:33→20:53)
[2022-08-06] MEDS: amLODIPine BESYLATE 5 MG TAB PO SCH (08:33)
[2022-08-06] MEDS: hydrALAZINE HCL 25 MG TAB PO SCH ×3 (08:33→20:54)
[2022-08-06] MEDS: METOPROLOL TARTRATE 25 MG TAB PO SCH ×2 (08:33→20:53)
[2022-08-06] MEDS: INSULIN ASPART PER UNIT SC SCH ×4 (08:34→21:15)
[2022-08-06] MEDS: LANTUS PER UNIT CHARGE SQ SCH ×2 (08:36→21:13)
--- NOTE | 2022-08-06 11:07 | Hospitalist Progress Note ---
Date of Service August 06, 2022 Assessment & Plan (1) Acute metabolic encephalopathy: Plan Acute metabolic encephalopathy Acute UTI Likely metabolic encephalopathy secondary to underlying urine infection. Admitting urine culture with contamination. Admitting head CT consistent with postsurgical changes and no progression from postsurgical status [confirmed by ED physician with patient's neurosurgeon Dr. Sorenson: [phone]] On cefdinir to complete 5 day treatment for possible UTI Encephalopathy has resolved Electrolyte abnormality: Hypomagnesemia, hyperkalemia Hypomagnesemia was repleted Hyperkalemia resolved Post-operative state: s/p meningioma removal on 07/16. Continue keppra for seizure prophylaxis in post-op state. Monitor for side effects of this including drowsiness/agitation. Also reported to be post pacemaker placement last week. I called Dr. Sorenson's office as patient missed her appointment scheduled for 08/01/22 regarding approach to her Eliquis resumption and Keppra cessation. On 08/03/22, I spoke with Daren Galindo PA-C at the office who discussed with Dr Sorenson. Recommends continuing to hold eliquis and continue keppra until patient follows op with them. Also recommended ok to remove kassie. Surgical stables have been removed Subdural hematoma: Per notes, imaging was reviewed with neurosugery and there has been no worsening of already known post-operative subdural hematoma and SAH seen on current imaging. Continue to monitor mental status Anemia: Hb Appears closer to her baseline Iron profile with low iron and low normal folate. Continue with home iron supplement, folate. Other chronic medical conditions: DM type II CKD stage III A. fib [Eliquis on hold until follow[place] with [facility] [place]] DVT prophylaxis: SCDs/ambulation Full code Dispo: CM working on placement Admission and Anticipated Discharge Date Admission Date: July 30, 2022 Subjective Patient seen and examined. Patient denies any new complaints Denies any headache or dizziness Denies any chest pain, shortness of breath, palpitations Denies any nausea, vomiting, abdominal pain, diarrhea constipation Denies any dysuria, frequency, urgency Physical Exam Constitutional: + well hydrated; no acute distress Eyes: PERRL, conjunctivae normal, anicteric sclerae ENMT: external ear and nose normal, oropharynx normal Respiratory: normal respiratory effort, lungs clear to auscultation Cardiovascular: Rate/Rhythm: regular rate and regular rhythm S1 S2 Gastrointestinal (Abdomen): normal bowel sounds, soft, nontender, no hepatosplenomegaly Musculoskeletal: No pedal edema Neurologic: PERRL, EOMI, accommodation nl, no face palsy, no dysarthria Psychiatric: A+Ox3, euthymic affect Results & Data Results & Data ([facility]) Vital Signs (Past 12 Hours) Vital Signs Temp Pulse Pulse Resp BP BP Pulse Ox 08/06/22 08:03 36.9 C 72 16 119/67 98 08/06/22 07:46 71 08/06/22 03:35 36 C L 70 18 117/68 94 08/06/22 00:24 76 O2 Del Method 08/06/22 08:03 Room Air 08/06/22 07:46 08/06/22 03:35 Room Air 08/06/22 00:24 Laboratory Results Abnormal lab results 08/05/22 08/05/22 08/05/22 Range/Units 11:49 16:29 20:25 POC Glucose 253 H 199 H 242 H (70-99) mg/dl 08/06/22 Range/Units 07:34 POC Glucose 138 H (70-99) mg/dl
[2022-08-07] MEDS: INSULIN ASPART PER UNIT SC SCH ×4 (09:01→19:56)
[2022-08-07] MEDS: LANTUS PER UNIT CHARGE SQ SCH ×2 (09:01→20:04)
[2022-08-07] MEDS: hydrALAZINE HCL 25 MG TAB PO SCH ×3 (09:02→19:59)
[2022-08-07] MEDS: ADVANCED PROBIOTIC 1250 MG CAPSULE PO SCH (09:02)
[2022-08-07] MEDS: DOCUSATE SODIUM 100 MG CAP PO SCH ×2 (09:03→19:58)
[2022-08-07] MEDS: FERROUS SULFATE 325 MG TAB PO SCH ×2 (09:03→19:58)
[2022-08-07] MEDS: CYANOCOBALAMIN (B-12) 500 MCG TABLET PO SCH (09:03)
[2022-08-07] MEDS: FOLIC ACID 1 MG TAB PO SCH (09:03)
[2022-08-07] MEDS: ATORVASTATIN 40 MG TAB PO SCH (09:03)
[2022-08-07] MEDS: levETIRAcetam 500 MG TAB PO SCH ×2 (09:03→20:00)
[2022-08-07] MEDS: METOPROLOL TARTRATE 25 MG TAB PO SCH ×2 (09:03→20:00)
[2022-08-07] MEDS: amLODIPine BESYLATE 5 MG TAB PO SCH (09:03)
--- NOTE | 2022-08-07 11:38 | Hospitalist Progress Note ---
Date of Service August 07, 2022 Assessment & Plan (1) Acute metabolic encephalopathy: Plan Acute metabolic encephalopathy Acute UTI Likely metabolic encephalopathy secondary to underlying urine infection. Admitting urine culture with contamination. Admitting head CT consistent with postsurgical changes and no progression from postsurgical status [confirmed by ED physician with patient's neurosurgeon Dr. Sorenson: [phone]] On cefdinir to complete 5 day treatment for possible UTI Encephalopathy has resolved Electrolyte abnormality: Hypomagnesemia, hyperkalemia Hypomagnesemia was repleted Hyperkalemia resolved Post-operative state: s/p meningioma removal on 07/16. Continue keppra for seizure prophylaxis in post-op state. Monitor for side effects of this including drowsiness/agitation. Also reported to be post pacemaker placement last week. On 08/03/[address] Sorenson's office as patient missed her appointment scheduled for 08/01/22 regarding approach to her Eliquis resumption and Keppra ce ssation. I spoke with Daren Galindo PA-C at the office who discussed with Dr Sorenson. Recommends continuing to hold eliquis and continue keppra until patient follows op with them. Also recommended ok to remove kassie. Surgical stables have been removed Subdural hematoma: Per notes, imaging was reviewed with neurosugery and there has been no worsening of already known post-operative subdural hematoma and SAH seen on current imaging. Continue to monitor mental status Anemia: Hb Appears closer to her baseline Iron profile with low iron and low normal folate. Continue with home iron supplement, folate. Other chronic medical conditions: DM type II CKD stage III A. fib [Eliquis on hold until follow-up with [facility] neuro[place]] DVT prophylaxis: SCDs/ambulation Full code Dispo: CM working on placement Admission and Anticipated Discharge Date Admission Date: July 30, 2022 Subjective Patient seen and examined. Patient denies any new complaints Denies any headache or dizziness Denies any chest pain, shortness of breath, palpitations Denies any nausea, vomiting, abdominal pain, diarrhea constipation Denies any dysuria, frequency, urgency Physical Exam Constitutional: + well hydrated; no acute distress Eyes: PERRL, conjunctivae normal, anicteric sclerae ENMT: external ear and nose normal, oropharynx normal Respiratory: normal respiratory effort, lungs clear to auscultation Cardiovascular: Rate/Rhythm: regular rate and regular rhythm S1 S2 Gastrointestinal (Abdomen): normal bowel sounds, soft, nontender, no hepatosplenomegaly Neurologic: PERRL, EOMI, accommodation nl, no face palsy, no dysarthria Psychiatric: A+Ox3, euthymic affect Results & Data Results & Data ([facility]) Vital Signs (Past 12 Hours) Vital Signs Temp Pulse Resp BP Pulse Ox O2 Del Method 08/07/22 11:09 36.4 C L 69 125/67 95 Room Air 08/07/22 08:00 Room Air 08/07/22 07:20 36.7 C 68 152/69 H 93 Room Air 08/06/22 23:45 37.5 C 75 18 135/68 91 Room Air Laboratory Results Abnormal lab results 08/06/22 08/06/22 08/07/22 Range/Units 16:43 20:32 07:45 POC Glucose 135 H 191 H 133 H (70-99) mg/dl 08/07/22 Range/Units 11:45 POC Glucose 283 H (70-99) mg/dl
[2022-08-08] MEDS: INSULIN ASPART PER UNIT SC SCH ×2 (08:23→12:12)
[2022-08-08] MEDS: LANTUS PER UNIT CHARGE SQ SCH (08:25)
[2022-08-08] MEDS: METOPROLOL TARTRATE 25 MG TAB PO SCH (08:30)
[2022-08-08] MEDS: ADVANCED PROBIOTIC 1250 MG CAPSULE PO SCH (08:30)
[2022-08-08] MEDS: CYANOCOBALAMIN (B-12) 500 MCG TABLET PO SCH (08:30)
[2022-08-08] MEDS: hydrALAZINE HCL 25 MG TAB PO SCH (08:30)
[2022-08-08] MEDS: FOLIC ACID 1 MG TAB PO SCH (08:30)
[2022-08-08] MEDS: ATORVASTATIN 40 MG TAB PO SCH (08:30)
[2022-08-08] MEDS: amLODIPine BESYLATE 5 MG TAB PO SCH (08:30)
[2022-08-08] MEDS: levETIRAcetam 500 MG TAB PO SCH (08:30)
[2022-08-08] MEDS: DOCUSATE SODIUM 100 MG CAP PO SCH (08:31)
[2022-08-08] MEDS: FERROUS SULFATE 325 MG TAB PO SCH (08:31)
--- NOTE | 2022-08-08 10:17 | Discharge Summary ---
Discharge Summary Date of Service August 08, 2022 Notes For Next Care Provider Patient needs follow-up with neurosurgeon Follow-up recovery at nursing facility Medication Changes From Visit Patient's lisinopril was reduced to 5 mg daily based on blood pressure while inpatient. May be adjusted as needed Continue to hold off anticoagulation until follow-up with neurosurgeon Continue Keppra and to follow-up with neurosurgeon Admission HPI Per Admitting Provider History obtained from patient and records. 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 fib status post PPM on Eliquis prior to recent craniotomy, meningioma status post recent craniotomy/resection (07/2022 [facility] [place]), hypertension, hyperlipidemia, DM2 on oral medications, NISHANT on CPAP, asbestosis as per records, chronic anemia (baseline hemoglobin 10-11), recurrent hyperkalemia, past tobacco abuse. Last [facility] May 2018 confinement under Orthopedics service for elective left total knee arthroplasty. Patient confined at [facility] from July 16 to 2021 for left parafalcine mass (probable meningioma) causing mass-effect and vasogenic edema. Patient underwent left frontal craniotomy for meningioma resection. Postop CT (07/16) 1. Postoperative changes from a left frontal craniotomy for resection of the left anterior falx meningioma. 2. Small amount of subdural hemorrhage and subarachnoid hemorrhage. No hydrocephalus. 3. Pneumocephalus with maximum thickness of 1.4 cm, localized mass effect on the frontal lobes. Postop Brain MRI (07/17) Early postoperative appearance following left frontal craniotomy and resection of left falcine extra-axial mass. No evidence of residual tumor. New bilateral FLAIR hyperintense subdural collections. No significant mass effect. Patient discharged to [facility] rehab facility on oral Decadron taper with H2 suze prescription (last dose 07/30/2022) and Keppra for seizure prophylaxis. Patient instructed to resume Eliquis potentially on August 02, 2022 (after 08/01/22 [facility] [place] Neurosurgery follow-up appointment) as per discharge note. Keppra to be continued until upcoming Neurosurgery follow-up visit. Patient noted to be lethargic and weak at the rehab facility today. Staff worried about strokelike symptoms. Patient denies headache, chest pain, SOB, abdominal pain, dysuria symptoms. Patient brought to the ER for evaluation. Ciprofloxacin administered at the ER for possible UTI. Patient currently feels much better. Medical History as above Surgical History : Knee surgeries, carpal tunnel surgery, PPM, appendectomy, craniotomy with meningioma resection, KATERYNA/BSO Family History : Colon cancer, heart disease, stroke Personal/Social history : Past tobacco abuse, occasional EtOH intake, retired nurse aide Admission Exam Per Admitting Provider GENERAL: Comfortable, pleasant, dysphonic (chronic as per patient ), mild dysarthria (chronic as per patient), no respiratory distress SKIN: Pallor, warm HEENT: Pale palpebral conjunctivae, no ptosis, chronic facial asymmetry as per patient, dry buccal mucosa NECK : Supple, no tenderness CHEST : CTA, no tenderness HEART : RRR, no obvious murmurs ABDOMEN: Some distention, nontender EXTREMITIES : No LE swelling/tenderness, no other conspicuous deformities noted NEUROLOGIC : Coherent, chronic facial asymmetry, chronic right hemiparesis, chronic dysarthria, gait and stance not assessed Principal Dx & Hospital Course #1 = Principal Diagnosis (1) Acute metabolic encephalopathy: Plan Acute metabolic encephalopathy Acute UTI Likely metabolic encephalopathy secondary to underlying urine infection. Admitting urine culture with contamination. Blood culture negative Admitting head CT consistent with postsurgical changes and no progression from postsurgical status [confirmed by ED physician with patient's neurosurgeon Dr. Sorenson: [phone]] Was treated with antibiotics inpatient for UTI Encephalopathy has resolved Electrolyte abnormality: Hypomagnesemia, hyperkalemia Hypomagnesemia was repleted Hyperkalemia resolved Post-operative state: s/p meningioma removal on 07/16/22. Also reported recent pacemaker placement. On 08/03/[address] Sorenson's office as patient missed her appointment scheduled for 08/01/22 regarding approach to her Eliquis resumption and Keppra cessation. I spoke with Daren Galindo PA-C at the office who discussed with Dr Sorenson. Recommends continuing to hold eliquis and continue keppra until patient follows op with them. Also recommended ok to remove kassie. Surgical kassie were removed Subdural hematoma: Per notes, imaging was reviewed with neurosugery and there has been no worsening of already known post-operative subdural hematoma and SAH seen on current imaging. Do not resume anticoagulation until ok with neurosurgeon Anemia: DM type II CKD stage III Discharge Exam Constitutional + well hydrated; no acute distress Eyes PERRL, conjunctivae normal, anicteric sclerae ENMT external ear and nose normal, oropharynx normal Respiratory normal respiratory effort, lungs clear to auscultation Cardiovascular Rate/Rhythm: regular rate and regular rhythm S1 S2 Gastrointestinal (Abdomen) normal bowel sounds, soft, nontender, no hepatosplenomegaly Musculoskeletal No pedal edema Neurologic PERRL, EOMI, accommodation nl, no face palsy, no dysarthria Psychiatric A+Ox3, euthymic affect Updated Medication List Medication Instructions Recorded Confirmed Type acetaminophen 325 mg tablet 650 mg PO Q4 PRN pain #50 tabs 08/08/22 Rx (Tylenol) amlodipine 10 mg tablet 10 mg PO DAILY #30 tabs 08/08/22 Rx ascorbic acid (vitamin C) 500 mg 500 mg PO DAILY #30 tabs 08/08/22 Rx tablet (Vitamin C) atorvastatin 40 mg tablet 40 mg PO DAILY #30 tabs 08/08/22 Rx cyanocobalamin (vitamin B-12) 2,000 mcg PO DAILY #30 tabs 08/08/22 Rx 1,000 mcg tablet docusate sodium 100 mg capsule 100 mg PO BID #60 caps 08/08/22 Rx ferrous sulfate 325 mg (65 mg 325 mg PO BID #60 tabs 08/08/22 Rx iron) tablet glipizide 2.5 mg tablet, extended 5 mg PO QAM #30 tabs 08/08/22 Rx release 24 hr hydralazine 25 mg tablet 75 mg PO TID #270 tabs 08/08/22 Rx insulin regular human 100 unit/mL 1 sliding scale dose subcut ACHS 08/08/22 07/30/22 Rx injection solution (Humulin R #10 mL Regular U-100 Insulin) levetiracetam 500 mg tablet 500 mg PO Q12H #60 tabs 08/08/22 Rx lisinopril 5 mg tablet 5 mg PO DAILY #30 tabs 08/08/22 Rx metformin 1,000 mg tablet 1,000 mg PO BIDWMEAL #60 tabs 08/08/22 Rx metoprolol tartrate 25 mg tablet 25 mg PO Q12 #60 tabs 08/08/22 Rx polyethylene glycol 3350 17 17 g PO .QLUNCH PRN Constipation 08/08/22 Rx gram/dose oral powder (Miralax) #15 grams sennosides 8.6 mg-docusate sodium 1 tab-cap PO .QLUNCH PRN 08/08/22 Rx 50 mg tablet (Senokot-S) Constipation #15 tabs Hospital Stay Data Consultations 07/30/22 21:45 ED Decision to Admit Stat 08/03/22 12:45 Consult General Surgery Routine Diagnostic Imagining Performed 07/30/22 19:52 CT head/brain wo con Stat There are postsurgical changes in the left frontal lobe with associated encephalomalacia. Pneumocephalus is seen. Hyperdense material in the right frontal subdural region measures 27 mm. There is prominence of the left subarachnoid space and an approximate 5 mm dural density about the incision site. There is trace subarachnoid hemorrhage in the right frontal lobe. No intraventricular hemorrhage is seen. Imaged portions of the paranasal sinuses and mastoid air cells are clear. The orbits appear normal. There are no acute fractures of the calvaria or scalp sw elling. Impression: 1. Postsurgical changes of left frontal resection. There is pneumocephalus, 5 mm dural density about the incision site is noted, and there is trace subarachnoid hemorrhage. This may represent expected postoperative findings, however this may also be concerning for a small hemorrhage and/or infectious process. Correlation with recent postprocedural imaging is recommended. 2. 6 mm right subdural density may represent a subacute subdural hematoma, possibly postprocedural. 08/01/22 23:53 CT head/brain wo con Urgent Patient is status post left frontal craniotomy with a small hemorrhage and pneumocephalus noted at the craniotomy site. Right frontal subdural hyperdensity is unchanged. Edema is noted in the left frontal lobe. There is trace hyperden sity in the high parafalcine sulci which ut may represent trace subarachnoid hemorrhage. Old lacunar infarct in the right basal ganglia is unchanged. Imaged portions of the paranasal sinuses and mastoid air cells are clear. The orbits appear normal. There are no acute fractures of the calvaria or scalp swelling. Impression: Postsurgical changes are again noted including right frontal hyperdensity, postcraniotomy changes, pneumocephalus, and adjacent subdural hematoma, and subarachnoid hemorrhage in the left frontal sulci. No enlargement of intracranial hemorrhage is seen. Pending Results Patient Have Any Pending Studies at Discharge: No Discharge Instructions Given to Patient (Per Discharging Provider) Mrs Villalobos You were brought to the hospital for weakness and confusion. You were evaluated and managed. You received treatment for urinary infection and abnormal electrolytes. Your symptoms resolved. You are being discharged to nursing facility for rehab. Please ensure you call neurosurgeon to make appointment and coordinate with the facility for transport as you missed your post op follow up with them while in the hospital. PLEASE DO NOT RESUME YOUR BLOOD THINNER UNTIL ADVISED BY THE NEUROSURGEON. Your tramadol was discontinued as you did not need it in the hospital. Please use tylenol as needed for pain. Your lisinopril was reduced to 5mg daily for now based on your blood pressure readings. Please ensure follow up with your Primary Doctor It was a pleasure taking care of you. Total Time Total Time Spent Total Time Spent (In Minutes): 50 Total Time Includes: Examination of the Patient, Discharge Planning and Medication Reconciliation
[2022-08-08] MEDS ORDERED: COVID19 BIVALENT Vaccine (Booster ONLY--Pfizer) 30mcg/0.3mL IM ONE (11:00)
== END 2022-08-08 13:31 | DRG 689 ==
LOC: ED 18:48 → 2N 23:45 → INTOOBSV 23:45 → SUATTDRO 23:45 → 2N 07-31 01:29
DX: E83.42 Hypomagnesemia; Z88.0 Allergy status to penicillin; N39.0 Urinary tract infection, site not specified; E87.5 Hyperkalemia; I69.351 Hemiplegia and hemiparesis following cerebral infarction affecting right dominant side; I12.9 Hypertensive chronic kidney disease with stage 1 through stage 4 chronic kidney disease, or unspecified chronic kidney disease; Z79.84 Long term (current) use of oral hypoglycemic drugs; Z87.891 Personal history of nicotine dependence; Z98.890 Other specified postprocedural states; Z79.4 Long term (current) use of insulin; I60.9 Nontraumatic subarachnoid hemorrhage, unspecified; Z79.899 Other long term (current) drug therapy; Z88.7 Allergy status to serum and vaccine; Z88.2 Allergy status to sulfonamides; N18.30 Chronic kidney disease, stage 3 unspecified